=== PATIENT | male | born 1945 | race Caucasian/White ===

== ENCOUNTER 2017-12-26 15:47 | Emergency (ER) | payer MEDICARE ==
--- NOTE | 2017-12-26 16:22 | RAD ---
CHEST 1 VIEW Date: 12/26/17 HISTORY: Altered mental status. COMPARISON: Chest 1 view dated 06/25/17. FINDINGS: Lungs are hypoinflated with vascular crowding and spurious enlargement of the cardiac silhouette. No pneumothorax. No effusion. Left shoulder arthroplasty is present. No displaced rib fracture. IMPRESSION: Lung hypoinflation with vascular crowding. POS: [facility]
--- NOTE | 2017-12-26 16:41 | CT ---
CT HEAD NONCONTRAST DATE: 12/26/17 HISTORY: Altered mental status. COMPARISON: 06/25/17. FINDINGS: There is no evidence of acute intracranial hemorrhage or infarct. Mild chronic ischemic small vessel disease and diffuse cortical atrophy are apparent. There is no mass effect or shift of midline struct ures. Visualized paranasal sinuses remain well aerated. IMPRESSION: No acute intracranial abnormalities are demonstrated on noncontrast CT head. POS: [facility]
[2017-12-26 17:15] LABS: #Lymphocytes 0.5 thou/uL (1.20-3.40); #Monocytes 0.4 thou/uL (0.11-0.59); #Neutrophils 8.1 thou/uL (1.40-6.50); %Eosinophils 0.4 % (0.0-10.0); %Lymphocytes 5.2 % (21.0-51.0); %Monocytes 4.1 % (0.0-10.0); %Neutrophils 90.2 % (42.0-75.0); Hemoglobin 15.6 g/dL (14.0-18.0); Mean Corpuscular HGB CONC 32.7 g/dL (32.0-36.0); Mean Corpuscular Hemoglobin 27.7 pg (27.0-31.0); Mean Corpuscular Volume 84.6 fl (80.0-94.0); Mean Platelet Volume 8.4 fL (7.4-10.4); Platelet Count 127 thou/uL (130-400); RBC Distribution Width 15.9 % (11.5-14.5); Red Blood Cell (RBC) Count 5.62 mill/uL (4.70-6.10)
[2017-12-26 17:38] LABS: ALT (SGPT) 18 U/L (8-55); AST (SGOT) 20 U/L (5-34); Albumin 3.8 g/dL (3.4-4.8); Alkaline Phosphatase 67 U/L (40-150); Anion Gap 13 mmol/L (10-20); BUN (Urea Nitrogen) 20 mg/dL (8.4-25.7); Bilirubin, Total 0.6 mg/dL (0.2-1.2); CK (CPK) 64 U/L (30-200); Calc. Creatinine Clearance 0 mL/min (70-130); Calcium 8.8 mg/dL (7.8-10.44); Carbon Dioxide 23 mmol/L (23-31); Chloride 104 mmol/L (98-107); Estimated GFR-MDRD 59; Globulin 2.8 g/dL (2.4-3.5); Glucose 115 mg/dL (83-110); Protein, Total 6.6 g/dL (5.8-8.1); Sodium 136 mmol/L (136-145)
[2017-12-26 17:43] LABS: CKMB 0.8 ng/mL (0-6.6); Troponin I 0.011 ng/mL (< 0.028)
[2017-12-26 17:50] LABS: Bilirubin Negative (Negative); Blood, Urine Negative (Negative); Clarity CLEAR (Clear); Glucose, Urine (Dipstick) Negative (Negative); Leukocyte Negative (Negative); Nitrite Negative (Negative); Protein, Urine (Dipstick) Negative (Neg-Trace); Specific Gravity, Urine 1.021 (1.002-1.036); Urobilinogen 0.2 mg/dL (0.2-1.0)
--- NOTE | 2018-01-22 01:25 | EKG ---
Test Reason : Blood Pressure : / mmHG Vent. Rate : 088 BPM Atrial Rate : 214 BPM P-R Int : 000 ms QRS Dur : 118 ms QT Int : 396 ms P-R-T Axes : 000 -30 111 degrees QTc Int : 479 ms Atrial fibrillation Left axis deviation Low voltage QRS Septal infarct , age undetermined Inferior infarct , age undetermined Abnormal ECG Confirmed by RADHA WHITAKER, FEDE ([id number]), content editor SABIHA AQUINO ([id number]) on 01/22/2018 1:25:28 AM Referred By: Confirmed By:FEDE GARCIA MD
== END 2017-12-26 20:58 | disposition home or self-care (01) ==
LOC: ERS 15:47
DX: B34.9 Viral infection, unspecified (principal); I48.91 Unspecified atrial fibrillation; E11.9 Type 2 diabetes mellitus without complications; Z79.4 Long term (current) use of insulin; Z79.899 Other long term (current) drug therapy
CPT/HCPCS: 36415; 70450; 71045; 80053; 81003; 82550; 82553; 83605; 84484; 85025; 87040; 87086; 93005; 94760; 99214; G0463

== ENCOUNTER 2019-06-27 09:56 | Outpatient (CLI) | payer MEDICARE ==
[2019-06-27 11:01] LABS: Mean Corpuscular HGB CONC 32.4 g/dL (32.0-36.0); Mean Corpuscular Hemoglobin 28.2 pg (27.0-31.0); Mean Platelet Volume 8.4 fL (7.4-10.4); Platelet Count 163 thou/uL (130-400); RBC Distribution Width 13.5 % (11.5-14.5); Red Blood Cell (RBC) Count 5.31 mill/uL (4.70-6.10); White Blood Cell (WBC) Count 7.3 thou/uL (4.8-10.8)
[2019-06-27 11:21] LABS: INR-International Normal Ratio 1.3; PTT 59.5 SEC (22.9-36.1); Prothrombin Time 16.1 SEC (12.0-14.7)
[2019-06-27 11:23] LABS: Anion Gap 10 mmol/L (10-20); BUN (Urea Nitrogen) 22 mg/dL (8.4-25.7); Calc. Creatinine Clearance 0 mL/min (70-130); Calcium 9.3 mg/dL (7.8-10.44); Carbon Dioxide 30 mmol/L (23-31); Chloride 103 mmol/L (98-107); Estimated GFR-MDRD 52; Glucose 147 mg/dL (83-110); Potassium 4.1 mmol/L (3.5-5.1); Sodium 139 mmol/L (136-145)
[2019-06-27 12:20] LABS: Bacteria/HPF None Seen HPF (None Seen); Bilirubin Negative (Negative); Blood, Urine Negative (Negative); Clarity Clear (Clear); Glucose, Urine (Dipstick) Normal (Negative); Leukocyte Negative Leu/uL (Negative); Nitrite Negative (Negative); Protein, Urine (Dipstick) Negative (Neg-Trace); RBC/HPF 0-3 HPF (0-3); Squamous Epithelial None Seen HPF (0-3); Urobilinogen Normal mg/dL (Less than 2); WBC/HPF 0-3 HPF (0-3)
--- NOTE | 2019-06-27 18:22 | EKG ---
Test Reason : Blood Pressure : / mmHG Vent. Rate : 051 BPM Atrial Rate : 394 BPM P-R Int : 000 ms QRS Dur : 122 ms QT Int : 456 ms P-R-T Axes : 000 046 078 degrees QTc Int : 420 ms Atrial fibrillation with slow ventricular response Anteroseptal infarct (cited on or before 26-DEC-2017) Low voltage QRS Abnormal ECG When compared with ECG of 26-DEC-2017 16:06, Vent. rate has decreased BY 37 BPM Criteria for Inferior infarct are no longer Present Questionable change in initial forces of Anterior leads QT has shortened Confirmed by DR. Charlotte ONTIVEROS ([id number]) on 06/27/2019 6:22:09 PM Referred By: FRANNY Confirmed By:DR. Charlotte ONTIVEROS
== END 2019-06-27 09:57 | disposition home or self-care (01) ==
LOC: LABBT 09:56
PROVIDERS: ATTEND Urology
DX: Z01.818 Encounter for other preprocedural examination (principal); C61 Malignant neoplasm of prostate; N40.1 Benign prostatic hyperplasia with lower urinary tract symptoms; N39.0 Urinary tract infection, site not specified
CPT/HCPCS: 80048; 81001; 85027; 85610; 85730; 87077; 87086; 93005; 93010

== ENCOUNTER 2019-07-05 06:20 | Day surgery (SDC) | payer MEDICARE ==
[2019-06-27 10:10] VITALS: BMI 34.2
[2019-07-05] MEDS ORDERED: Levofloxacin 500 mg/D5W 100 ml Premix Bag ONE (06:45)
[2019-07-05] MEDS ORDERED: B & O ONE (10:56)
--- NOTE | 2019-07-05 12:24 | OP ---
DATE OF PROCEDURE: 07/05/2019 SERVICE: Urology. 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 POSTOPERATIVE DIAGNOSES: Benign prostatic hyperplasia with obstruction and prostate cancer. PROCEDURE PERFORMED: UroLift with six implants. INDICATIONS FOR PROCEDURE: Mr. Martines is a 73-year-old white male with low risk prostate cancer, Phillip 3 + 3 on active surveillance. He probably will transition to watchful waiting soon. He does have BPH with obstructive symptoms. We discussed options including the UroLift procedure with risks and benefits and he agreed to proceed forward. DESCRIPTION OF PROCEDURE: After identification of armband and verification of consent, the patient was brought back to the operating room, where he underwent total intravenous anesthesia. He was then placed in dorsal lithotomy position, prepped and draped in usual sterile fashion. After appropriate time-out, a lubricated 21-Danish rigid cystoscope sheath with camera was introduced into the urethra. The meatus did have to be dilated with [place] sounds in order to allow for introduction of the camera. The prostate was extremely hypertrophic and slightly vascular. The bladder was otherwise unremarkable as it was consistent with previous cystoscopy. The cystoscope was then switched out for the UroLift device and the first implant was placed on the patient's left side towards the bladder neck aspect. Compression of the prostate tissue was performed about 20 degrees on the anterior aspect of the prostate, taking good care to compress the lateral lobes sticking in. The safety was released and the blue trigger fired to release the needle. The lieberman trigger was fired to advance the Nitinol tab. The UroLift was then advanced forward until the white line to be seen in the keyhole and then, the release for the steel tab deployed on the prostatic lumen side. For some reason, there did not seem to be as good of a compression on this side, so we performed the same procedure on the contralateral aspect towards the bladder neck, which resulted in very good compression. Sutures were then placed at the prostatic apex near the verumontanum with excellent compression on both sides. An additional implant was placed on the left side closer to where the first implant was deployed on the left bladder neck side for better compression and again, the same thing happened with insufficient compression of the tissue. Six implants were was then also deployed near these other two implants, which resulted in very good compression at that time and much better opening of the prostatic channel. Upon completion, there was a nice anterior urethral channel with good passageway for urine to flow through. I did feel that this would allow the patient to urinate well. There was moderate amounts of bleeding, but nothing significant to require cauterization. The UroLift device was removed and an 18-Danish silastic catheter was advanced into the bladder with ease. A 10 mL of sterile water placed into the balloon. The patient was then taken out of positioning, awakened, and taken to Day Stay for recovery in stable condition. COMPLICATIONS: None. ESTIMATED BLOOD LOSS: Minimal. RETAINED TUBES AND DRAINS: An 18-Danish silicone catheter. IMPLANTS: Number of implants used 6. DISPOSITION: The patient will be monitored in the Day Stay. If his urine clears up, he can undergo a void trial and then be discharged home. If his urine remains bloody, we will keep the catheter and have him come back tomorrow for a potential void trial. Job ID: [id number]
== END 2019-07-05 14:46 | disposition home or self-care (01) ==
LOC: SDC 06:20
PROVIDERS: ATTEND Urology
PROC: 0T7D8DZ Dilation of Urethra with Intraluminal Device, Via Natural or Artificial Opening Endoscopic (ICD-10-PCS; principal; 2019-07-05)
DX: C61 Malignant neoplasm of prostate (principal); N40.1 Benign prostatic hyperplasia with lower urinary tract symptoms; N39.0 Urinary tract infection, site not specified; I10 Essential (primary) hypertension; E11.9 Type 2 diabetes mellitus without complications; E78.5 Hyperlipidemia, unspecified; E11.42 Type 2 diabetes mellitus with diabetic polyneuropathy; I48.91 Unspecified atrial fibrillation; E66.9 Obesity, unspecified; Z68.34 Body mass index [BMI] 34.0-34.9, adult; Z79.4 Long term (current) use of insulin; Z79.899 Other long term (current) drug therapy; Z88.8 Allergy status to other drugs, medicaments and biological substances; Z91.040 Latex allergy status
CPT/HCPCS: 82962; C1889; C9740; 36416; J1956

== ENCOUNTER 2019-11-27 12:34 | Outpatient (CLI) | payer MEDICARE ==
--- NOTE | 2019-11-27 13:48 | MRI ---
MRI BRAIN WITH AND WITHOUT IV CONTRAST: HISTORY: Mild cognitive impairment COMPARISON: 06/26/2017 CORRELATION:CT scan of 12/26/2017 FINDINGS: No restricted diffusion is seen. No evidence of infarct, hemorrhage, mass, midline shift or abnormal extra-axial fluid collections is noted. No abnormal postcontrast enhancement is seen. The ventricular size is appropriate and the basilar cisterns are patent. There is cortical atrophy. There are few foci of T2 prolongation in the periventricular white matter, consistent with minimal ch ronic small vessel ischemic disease. There is mucosal disease in the paranasal sinuses. There is fluid in the mastoid air cells. IMPRESSION: No evidence of acute intracranial process or mass.
[2019-11-27] MEDS ORDERED: Magnevist 469MG/ML 20 ML VIAL ONE (14:20)
== END 2019-11-27 12:35 | disposition home or self-care (01) ==
LOC: BICMRI 12:34
PROVIDERS: ATTEND Psychiatry & Neurology Neurology
DX: G31.84 Mild cognitive impairment of uncertain or unknown etiology (principal)
CPT/HCPCS: 70553; 82565; A9579

== ENCOUNTER 2020-01-10 11:10 | Emergency (ER) | payer MEDICARE ==
--- NOTE | 2020-01-10 11:48 | RAD ---
RIGHT SHOULDER 3 VIEWS: Date: 01/10/2020 HISTORY: Fall with trauma. FINDINGS: No evidence of fracture AC joint normally aligned. No evidence of dislocation. There are mild degener ative changes at the glenohumeral joint. IMPRESSION: No acute findings. POS: [facility]
--- NOTE | 2020-01-10 11:51 | RAD ---
Exam:3 views left shoulder HISTORY: Fall. Pain. Trauma. COMPARISON: None FINDINGS: Intercarpal and radiocarpal joint spaces are preserved. No fracture or cortical irregularit y or periosteal reaction. IMPRESSION: No posttraumatic change. There is pain or point tenderness, immobilization and follow-up imaging in 7-10 days.
--- NOTE | 2020-01-10 12:48 | CT ---
CT head noncontrast HISTORY: Fall. Head injury. COMPARISON: 12/26/2017. FINDINGS: There is no evidence of acute intracranial hemorrhage or infarct. Mild diffuse cortical atr ophy and chronic ischemic small vessel disease similar in appearance to the prior exam. There is no mass effect or shift of midline structures. Visualized paranasal sinuses remain well aera joshua. IMPRESSION : : No acute intracranial abnormalities are demonstrated.
== END 2020-01-10 13:20 | disposition home or self-care (01) ==
LOC: ERS 11:10
DX: S60.212A Contusion of left wrist, initial encounter (principal); S40.011A Contusion of right shoulder, initial encounter; S09.90XA Unspecified injury of head, initial encounter; E11.9 Type 2 diabetes mellitus without complications; I48.91 Unspecified atrial fibrillation; F43.10 Post-traumatic stress disorder, unspecified; Z79.84 Long term (current) use of oral hypoglycemic drugs; Z79.899 Other long term (current) drug therapy; W19.XXXA Unspecified fall, initial encounter
CPT/HCPCS: 70450

== ENCOUNTER 2020-04-17 07:58 | Emergency (ER) | payer MEDICARE, OTHER ==
[2020-04-17 08:33] LABS: #Basophils 0.1 thou/uL (0.0-0.2); #Eosinphils 0.3 thou/uL (0.0-0.7); #Lymphocytes 1.6 thou/uL (1.20-3.40); #Monocytes 0.7 thou/uL (0.11-0.59); #Neutrophils 4.5 thou/uL (1.40-6.50); %Basophils 0.8 % (0.0-1.0); %Eosinophils 3.6 % (0.0-10.0); %Lymphocytes 22.2 % (21.0-51.0); %Monocytes 9.7 % (0.0-10.0); %Neutrophils 63.7 % (42.0-75.0); Hemoglobin 14.2 g/dL (14.0-18.0); Mean Corpuscular HGB CONC 31.7 g/dL (32.0-36.0); Mean Corpuscular Hemoglobin 27.5 pg (27.0-31.0); Mean Corpuscular Volume 86.5 fL (78.0-98.0); Mean Platelet Volume 9.6 fL (7.4-10.4); Platelet Count 143 thou/uL (130-400); Red Blood Cell (RBC) Count 5.18 mill/uL (4.70-6.10)
[2020-04-17 08:56] LABS: ALT (SGPT) 20 U/L (8-55); AST (SGOT) 24 U/L (5-34); Albumin 3.9 g/dL (3.4-4.8); Alkaline Phosphatase 87 U/L (40-110); Anion Gap 12 mmol/L (10-20); BUN (Urea Nitrogen) 17 mg/dL (8.4-25.7); Bilirubin, Total 0.7 mg/dL (0.2-1.2); Calc. Creatinine Clearance 0 mL/min (70-130); Calcium 8.8 mg/dL (7.8-10.44); Carbon Dioxide 28 mmol/L (23-31); Chloride 104 mmol/L (98-107); Estimated GFR-MDRD 61; Globulin 2.6 g/dL (2.4-3.5); Glucose 180 mg/dL (83-110); Potassium 3.9 mmol/L (3.5-5.1); Protein, Total 6.5 g/dL (5.8-8.1); Sodium 140 mmol/L (136-145)
--- NOTE | 2020-04-17 08:57 | RAD ---
PORTABLE CHEST 1 VIEW: DATE: 04/17/2020. TIME: 8:45 AM. HISTORY: Shortness of breath. COMPARISON: 12/26/2017. FINDINGS: The heart size is normal. No focal areas of consolidation, pneumothoraces, trino pulmonary edema, or pleural effusions are seen. A left humeral prosthesis is present. IMPRESSION: No acute process. POS: [facility]
[2020-04-18 16:02] LABS: SARS-CoV-2 MS2 Positive; SARS-CoV-2 N Gene Negative; SARS-CoV-2 S Gene Negative; SARS-CoV-2 orf1ab Negative
== END 2020-04-17 10:18 | disposition home or self-care (01) ==
LOC: ERS 07:58
DX: R06.02 Shortness of breath (principal); E11.40 Type 2 diabetes mellitus with diabetic neuropathy, unspecified; I48.91 Unspecified atrial fibrillation; M10.9 Gout, unspecified; F43.10 Post-traumatic stress disorder, unspecified; Z20.828 Contact with and (suspected) exposure to other viral communicable diseases; Z79.899 Other long term (current) drug therapy; Z79.84 Long term (current) use of oral hypoglycemic drugs
CPT/HCPCS: 71045; 80053; 83880; 85025; 93005; 99285; U0003; 87635

== ENCOUNTER 2020-10-15 14:08 | Emergency (ER) | payer MEDICARE ==
[2020-10-15] MEDS ORDERED: Dexamethasone 4 mg/ml Vial ONE (14:40)
[2020-10-15 15:08] LABS: #Eosinphils 0.3 thou/uL (0.0-0.7); #Lymphocytes 0.6 thou/uL (1.20-3.40); #Monocytes 0.7 thou/uL (0.11-0.59); #Neutrophils 5.4 thou/uL (1.40-6.50); %Basophils 0.6 % (0.0-1.0); %Eosinophils 4.7 % (0.0-10.0); %Lymphocytes 8.1 % (21.0-51.0); %Monocytes 9.6 % (0.0-10.0); %Neutrophils 77.2 % (42.0-75.0); Hemoglobin 14.6 g/dL (14.0-18.0); Mean Corpuscular HGB CONC 32.4 g/dL (32.0-36.0); Mean Corpuscular Hemoglobin 28.9 pg (27.0-31.0); Mean Platelet Volume 8.9 fL (7.4-10.4); Platelet Count 143 thou/uL (130-400); RBC Distribution Width 13.6 % (11.5-14.5); Red Blood Cell (RBC) Count 5.08 mill/uL (4.70-6.10)
--- NOTE | 2020-10-15 15:12 | RAD ---
Portable frontal chest radiograph: 10/15/2020 COMPARISON: 04/17/2020 HISTORY: Dyspnea, Covid positive patient FINDINGS: Stable enlargement of the cardiac silhouette. Stable postoperative change of the left humer al head. No pneumothorax or pleural fluid. No focal consolidation or alveolar edema. Mild pulmonary vascular prominence. No significant interval change. IMPRESSION: Stable portable frontal chest radiograph.
[2020-10-15 15:33] LABS: ALT (SGPT) 24 U/L (8-55); AST (SGOT) 35 U/L (5-34); Albumin 4.3 g/dL (3.4-4.8); Alkaline Phosphatase 92 U/L (40-110); Anion Gap 15 mmol/L (10-20); BUN (Urea Nitrogen) 19 mg/dL (8.4-25.7); Bilirubin, Total 0.8 mg/dL (0.2-1.2); CK (CPK) 136 U/L (30-200); Calc. Creatinine Clearance 0 mL/min (70-130); Carbon Dioxide 31 mmol/L (23-31); Chloride 100 mmol/L (98-107); Globulin 3.1 g/dL (2.4-3.5); Glucose 144 mg/dL (83-110); Lipase 25 U/L (8-78); Potassium 3.7 mmol/L (3.5-5.1); Protein, Total 7.4 g/dL (5.8-8.1); Sodium 142 mmol/L (136-145)
[2020-10-15] MEDS ORDERED: diphenhydrAMINE 50 MG/ML VIAL IVP SCH (16:15)
[2020-10-15] MEDS ORDERED: Acetaminophen 500 MG TAB PO SCH (16:15)
[2020-10-15] MEDS ORDERED: Acetaminophen 500 MG TAB ONE (16:43)
[2020-10-15] MEDS ORDERED: diphenhydrAMINE 50 MG/ML VIAL ONE (16:43)
[2020-10-15] MEDS ORDERED: BAMLANIVIMAB 700 MG in Sodium Chloride 0.9% 250 ML 250 ML IVPB SCH (17:00)
--- NOTE | 2020-10-18 15:23 | EKG ---
Test Reason : Blood Pressure : / mmHG Vent. Rate : 072 BPM Atrial Rate : 072 BPM P-R Int : 000 ms QRS Dur : 120 ms QT Int : 450 ms P-R-T Axes : 000 -42 104 degrees QTc Int : 492 ms Atrial fibrillation with premature ventricular or aberrantly conducted complexes Left axis deviation Anteroseptal infarct , age undetermined T wave abnormality, consider lateral ischemia Abnormal ECG Confirmed by MICHAEL WHITAKER, ANJU ([id number]), video tape editor DANIAL ESCAMILLA ([id number]) on 10/18/2020 3:22:32 PM Referred By: Confirmed By:ANJU RODRIGUEZ MD
== END 2020-10-15 19:20 | disposition home or self-care (01) ==
LOC: ERS 14:08
DX: U07.1 COVID-19 (principal); E11.40 Type 2 diabetes mellitus with diabetic neuropathy, unspecified; I48.91 Unspecified atrial fibrillation; Z79.84 Long term (current) use of oral hypoglycemic drugs; Z79.899 Other long term (current) drug therapy; M10.9 Gout, unspecified
CPT/HCPCS: 71045; 80053; 82550; 83690; 83880; 84484; 85025; 85379; 93005; 96374; J1100; J1200; J7050

== ENCOUNTER 2022-06-22 09:31 | Outpatient (CLI) | payer MEDICARE ==
[2022-06-22 13:37] LABS: Anion Gap 15 mmol/L (10-20); BUN (Urea Nitrogen) 18 mg/dL (8.4-25.7); Calc. Creatinine Clearance 0 mL/min (70-130); Calcium 9.5 mg/dL (7.8-10.44); Carbon Dioxide 28 mmol/L (23-31); Chloride 103 mmol/L (98-107); Estimated GFR 65; Glucose 126 mg/dL (83-110); Potassium 4.1 mmol/L (3.5-5.1); Sodium 142 mmol/L (136-145)
[2022-06-22 13:38] LABS: Hemoglobin 16.1 g/dL (13.5-17.5); Mean Corpuscular HGB CONC 31.8 g/dL (32.0-36.0); Mean Corpuscular Hemoglobin 28.8 pg (27.0-33.0); Mean Corpuscular Volume 90.4 fl (81.2-95.1); Mean Platelet Volume 11.3 fl (7.4-10.4); Platelet Count 169 10x3/uL (150-450); RBC Distribution Width 15.6 % (11.5-14.5); White Blood Cell (WBC) Count 5.9 10x3/uL (3.5-10.5)
[2022-06-22 13:47] LABS: INR-International Normal Ratio 1.3; PTT 51.5 sec (22.0-33.0)
[2022-06-22 13:57] LABS: Bilirubin Neg (Negative); Blood, Urine Negative (Negative); Clarity Clear (Clear); Glucose, Urine (Dipstick) >=1000 mg/dL (Negative); Ketone, Urine Negative (Negative); Leukocyte Negative (Negative); Nitrite Negative (Negative); Protein, Urine (Dipstick) Negative (Neg-Trace); Urobilinogen Normal mg/dL (Less than 2)
[2022-06-22 14:29] LABS: Bacteria/HPF Rare-Few HPF (None Seen); RBC/HPF 0-3 HPF (0-3); Squamous Epithelial 0-3 HPF (0-3); WBC/HPF 0-3 HPF (0-3)
== END 2022-06-22 09:32 | disposition home or self-care (01) ==
LOC: LABBT 09:31
PROVIDERS: ATTEND Urology
DX: Z01.818 Encounter for other preprocedural examination (principal); N40.0 Benign prostatic hyperplasia without lower urinary tract symptoms; Z20.822 Contact with and (suspected) exposure to COVID-19
CPT/HCPCS: 80048; 81001; 85027; 85610; 85730; 87086; 87811; 93005; 93010

== ENCOUNTER 2022-06-25 08:03 | Day surgery (SDC) | payer MEDICARE ==
[2022-06-23 13:18] VITALS: BMI 30.8
[2022-06-25] MEDS ORDERED: Fentanyl 100 MCG/2 ML VIAL ONE (10:37)
[2022-06-25] MEDS ORDERED: PROPOFOL 200 MG/20 ML VIAL ONE (10:54)
[2022-06-25] MEDS ORDERED: ePHEDrine 50 MG/ML VIAL ONE (10:54)
[2022-06-25] MEDS ORDERED: Lidocaine 1% MPF 2 ML VIAL ONE (10:54)
[2022-06-25] MEDS ORDERED: B & O ONE (10:58)
[2022-06-25] MEDS ORDERED: Levofloxacin 500 mg/D5W 100 ml Premix Bag ONE (10:59)
[2022-06-25] MEDS ORDERED: Oxybutynin 5 MG TAB ONE (11:55)
[2022-06-25] MEDS ORDERED: Phenazopyridine HCl 100 MG TAB ONE (11:55)
== END 2022-06-25 14:40 | disposition home or self-care (01) ==
LOC: SDC 08:03
PROVIDERS: ATTEND Urology
PROC: 0T7D8DZ Dilation of Urethra with Intraluminal Device, Via Natural or Artificial Opening Endoscopic (ICD-10-PCS; principal; 2022-06-25)
DX: N40.1 Benign prostatic hyperplasia with lower urinary tract symptoms (principal); N13.8 Other obstructive and reflux uropathy; N39.41 Urge incontinence; I48.0 Paroxysmal atrial fibrillation; I12.9 Hypertensive chronic kidney disease with stage 1 through stage 4 chronic kidney disease, or unspecified chronic kidney disease; E11.22 Type 2 diabetes mellitus with diabetic chronic kidney disease; N18.9 Chronic kidney disease, unspecified; E11.40 Type 2 diabetes mellitus with diabetic neuropathy, unspecified; M10.9 Gout, unspecified; Z79.4 Long term (current) use of insulin; Z79.84 Long term (current) use of oral hypoglycemic drugs; Z79.890 Hormone replacement therapy; Z79.899 Other long term (current) drug therapy; Z88.8 Allergy status to other drugs, medicaments and biological substances; Z91.040 Latex allergy status
CPT/HCPCS: 82962; C9740; L8699; 36416; J1956; J2704; J3010; J3490

== ENCOUNTER 2022-09-24 12:29 | Inpatient (IN) | payer MEDICARE ==
[2022-09-24 13:13] LABS: #Basophils 0.1 thou/uL (0.0-0.2); #Eosinphils 0.3 thou/uL (0.0-0.7); #Lymphocytes 1.5 thou/uL (1.20-3.40); #Monocytes 0.6 thou/uL (0.11-0.59); #Neutrophils 4.1 thou/uL (1.40-6.50); %Basophils 1.4 % (0.0-1.0); %Lymphocytes 22.7 % (21.0-51.0); %Neutrophils 62.9 % (42.0-75.0); Hemoglobin 16.1 g/dL (14.0-18.0); Mean Corpuscular HGB CONC 32.3 g/dL (32.0-36.0); Mean Corpuscular Hemoglobin 29.2 pg (27.0-31.0); Mean Corpuscular Volume 90.3 fl (78.0-98.0); Mean Platelet Volume 9.4 fL (7.4-10.4); Platelet Count 148 10x3/uL (130-400); RBC Distribution Width 14.5 % (11.5-14.5); Red Blood Cell (RBC) Count 5.53 mill/uL (4.70-6.10); White Blood Cell (WBC) Count 6.5 10x3/uL (4.8-10.8)
[2022-09-24 13:37] LABS: ALT (SGPT) 20 U/L (8-55); AST (SGOT) 37 U/L (5-34); Albumin 4.4 g/dL (3.4-4.8); Alkaline Phosphatase 82 U/L (40-110); Anion Gap 13 mmol/L (10-20); BUN (Urea Nitrogen) 30 mg/dL (8.4-25.7); Bilirubin, Total 0.7 mg/dL (0.2-1.2); Calc. Creatinine Clearance 0 mL/min (70-130); Calcium 9.6 mg/dL (7.8-10.44); Carbon Dioxide 30 mmol/L (23-31); Chloride 101 mmol/L (98-107); Estimated GFR 30; Glucose 126 mg/dL (83-110); Potassium 4.6 mmol/L (3.5-5.1); Protein, Total 7.4 g/dL (5.8-8.1); Sodium 139 mmol/L (136-145)
[2022-09-24 14:09] LABS: Magnesium 2.2 mg/dL (1.6-2.6)
[2022-09-24] MEDS ORDERED: Dextrose 5% in Water 1,000 ML IV PRN (17:07)
[2022-09-24] MEDS ORDERED: Dextrose 50% Abboject 50 ML SYRINGE SLOW IVP PRN (17:07)
[2022-09-24] MEDS ORDERED: HumaLOG 300 UNITS/3 ML VIAL SC PRN (17:07)
[2022-09-24] MEDS ORDERED: HYDROcodone/Acetaminophen 5/325 mg Tablet PO PRN ×2 (17:28)
[2022-09-24] MEDS ORDERED: Bisacodyl 5 MG TAB PO PRN (17:28)
[2022-09-24] MEDS ORDERED: Acetaminophen 325 MG TAB PO PRN (17:28)
[2022-09-24] MEDS ORDERED: Ondansetron PF 4 MG/2 ML Vial IVP PRN (17:28)
[2022-09-24 18:06] VITALS: BMI 31.2
[2022-09-24 18:07] LABS: Troponin I 0.014 ng/mL (< 0.028)
[2022-09-24] MEDS: Sodium Chloride 0.9% 1,000 ML IV SCH (18:51)
[2022-09-24] MEDS: Atorvastatin Calcium 20 MG TAB PO SCH (20:07)
[2022-09-24] MEDS: Vit A,C & E/Lutein/Minerals Tablet PO SCH (20:08)
[2022-09-24 20:19] LABS: Bacteria/HPF None Seen HPF (None Seen); Bilirubin Negative (Negative); Blood, Urine Negative (Negative); CAUTI Indications for Culture Alt mental st,lethar; Clarity Clear (Clear); Glucose, Urine (Dipstick) Greater than 1000 mg/dL (Negative); Ketone, Urine Negative (Negative); Leukocyte Negative Leu/uL (Negative); Nitrite Negative (Negative); Protein, Urine (Dipstick) Negative (Neg-Trace); RBC/HPF 0-3 HPF (0-3); Specific Gravity, Urine 1.012 (1.002-1.036); Squamous Epithelial None Seen HPF (0-3); Urine Culture Reflex No No; Urobilinogen Normal mg/dL (Less than 2); WBC/HPF 0-3 HPF (0-3)
[2022-09-24 21:02] LABS: Troponin I 0.015 ng/mL (< 0.028)
[2022-09-25] MEDS: Sodium Chloride 0.9% 1,000 ML IV SCH ×3 (04:14→16:59)
[2022-09-25] MEDS: Levothyroxine Sodium 125 MCG TAB PO SCH (04:54)
[2022-09-25 05:13] LABS: #Basophils 0.1 thou/uL (0.0-0.2); #Eosinphils 0.4 thou/uL (0.0-0.7); #Lymphocytes 2.2 thou/uL (1.20-3.40); #Monocytes 0.6 thou/uL (0.11-0.59); %Basophils 1.2 % (0.0-1.0); %Eosinophils 6.4 % (0.0-10.0); %Lymphocytes 34.5 % (21.0-51.0); %Monocytes 10.1 % (0.0-10.0); %Neutrophils 47.7 % (42.0-75.0); Hemoglobin 14.4 g/dL (14.0-18.0); Mean Corpuscular HGB CONC 31.7 g/dL (32.0-36.0); Mean Corpuscular Hemoglobin 28.9 pg (27.0-31.0); Mean Corpuscular Volume 91.2 fl (78.0-98.0); Mean Platelet Volume 9.8 fL (7.4-10.4); Platelet Count 133 10x3/uL (130-400); RBC Distribution Width 14.7 % (11.5-14.5); Red Blood Cell (RBC) Count 4.99 mill/uL (4.70-6.10); White Blood Cell (WBC) Count 6.4 10x3/uL (4.8-10.8)
[2022-09-25 05:23] LABS: Anion Gap 12 mmol/L (10-20); BUN (Urea Nitrogen) 27 mg/dL (8.4-25.7); Calc. Creatinine Clearance 52 mL/min (70-130); Calcium 8.7 mg/dL (7.8-10.44); Carbon Dioxide 26 mmol/L (23-31); Chloride 105 mmol/L (98-107); Estimated GFR 42; Glucose 93 mg/dL (83-110); Magnesium 2.3 mg/dL (1.6-2.6); Sodium 139 mmol/L (136-145)
[2022-09-25] MEDS: Calcium Carbonate 500 MG TAB PO SCH (09:07)
[2022-09-25] MEDS: Allopurinol 300 MG TAB PO SCH (09:07)
[2022-09-25] MEDS: Vit A,C & E/Lutein/Minerals Tablet PO SCH ×2 (09:08→20:50)
[2022-09-25] MEDS: Oxybutynin ER 5 MG TAB PO SCH (09:08)
[2022-09-25] MEDS: Loratadine 10 MG TAB PO SCH (09:08)
[2022-09-25] MEDS: Cyanocobalamin (Vitamin B-12) 1,000 MCG TAB PO SCH (09:08)
[2022-09-25] MEDS: Floranex 1 GM Packet PO SCH (12:03)
[2022-09-25] MEDS ORDERED: HumaLOG 300 UNITS/3 ML VIAL SC PRN ×2 (14:23)
[2022-09-25] MEDS ORDERED: Gabapentin 400 MG CAP PO SCH (15:00)
[2022-09-25] MEDS: Gabapentin 300 MG CAP PO SCH ×2 (15:31→20:51)
[2022-09-25] MEDS ORDERED: Communication Order-Pharmacy FS ONE (19:57)
[2022-09-25 20:22] LABS: Hemoglobin 15.1 g/dL (14.0-18.0); Platelet Count 133 10x3/uL (130-400)
[2022-09-25] MEDS: Melatonin 3 MG TAB PO SCH (20:51)
[2022-09-25] MEDS: Atorvastatin Calcium 20 MG TAB PO SCH (20:51)
[2022-09-25] MEDS ORDERED: metFORMIN 850 MG TAB PO SCH (21:00)
[2022-09-26] MEDS: Sodium Chloride 0.9% 1,000 ML IV SCH ×2 (04:54→18:15)
[2022-09-26 05:27] LABS: Anion Gap 10 mmol/L (10-20); BUN (Urea Nitrogen) 25 mg/dL (8.4-25.7); Calc. Creatinine Clearance 60 mL/min (70-130); Calcium 9.1 mg/dL (7.8-10.44); Carbon Dioxide 25 mmol/L (23-31); Chloride 105 mmol/L (98-107); Estimated GFR 50; Glucose 101 mg/dL (83-110); Sodium 136 mmol/L (136-145)
[2022-09-26] MEDS: Levothyroxine Sodium 125 MCG TAB PO SCH (06:31)
[2022-09-26] MEDS ORDERED: Potassium Chloride 10 MEQ TAB PO SCH (09:00)
[2022-09-26] MEDS ORDERED: Enoxaparin Sodium 100 MG/ML SYRINGE SC SCH (09:00)
[2022-09-26] MEDS: Calcium Carbonate 500 MG TAB PO SCH (09:15)
[2022-09-26] MEDS: Allopurinol 300 MG TAB PO SCH (09:15)
[2022-09-26] MEDS: Empagliflozin 25 MG TAB PO SCH (09:16)
[2022-09-26] MEDS: Cyanocobalamin (Vitamin B-12) 1,000 MCG TAB PO SCH (09:16)
[2022-09-26] MEDS: Gabapentin 300 MG CAP PO SCH ×3 (09:16→20:42)
[2022-09-26] MEDS: Oxybutynin ER 5 MG TAB PO SCH (09:17)
[2022-09-26] MEDS: Vit A,C & E/Lutein/Minerals Tablet PO SCH ×2 (09:17→20:41)
[2022-09-26] MEDS: Loratadine 10 MG TAB PO SCH (09:17)
[2022-09-26] MEDS: Floranex 1 GM Packet PO SCH (16:41)
[2022-09-26] MEDS: Atorvastatin Calcium 20 MG TAB PO SCH (20:42)
[2022-09-26] MEDS: Melatonin 3 MG TAB PO SCH (20:42)
[2022-09-27 05:42] LABS: Anion Gap 12 mmol/L (10-20); BUN (Urea Nitrogen) 26 mg/dL (8.4-25.7); Calc. Creatinine Clearance 66 mL/min (70-130); Calcium 8.9 mg/dL (7.8-10.44); Carbon Dioxide 22 mmol/L (23-31); Chloride 108 mmol/L (98-107); Estimated GFR 56; Glucose 107 mg/dL (83-110); Sodium 138 mmol/L (136-145)
[2022-09-27] MEDS: Levothyroxine Sodium 125 MCG TAB PO SCH (05:45)
[2022-09-27] MEDS: Sodium Chloride 0.9% 1,000 ML IV SCH (09:18)
[2022-09-27] MEDS: Floranex 1 GM Packet PO SCH (09:19)
[2022-09-27] MEDS: Calcium Carbonate 500 MG TAB PO SCH (09:19)
[2022-09-27] MEDS: Empagliflozin 25 MG TAB PO SCH (09:19)
[2022-09-27] MEDS: Cyanocobalamin (Vitamin B-12) 1,000 MCG TAB PO SCH (09:19)
[2022-09-27] MEDS: Vit A,C & E/Lutein/Minerals Tablet PO SCH ×2 (09:20→20:43)
[2022-09-27] MEDS: Oxybutynin ER 5 MG TAB PO SCH (09:22)
[2022-09-27] MEDS: Gabapentin 300 MG CAP PO SCH ×3 (09:22→20:41)
[2022-09-27] MEDS: Loratadine 10 MG TAB PO SCH (09:22)
[2022-09-27] MEDS ORDERED: Lidocaine 1% (PF) 30 ML VIAL ONE ×2 (11:53→14:44)
[2022-09-27] MEDS ORDERED: Iopamidol 370 76% 50 ML VIAL FS ONE (13:16)
[2022-09-27] MEDS ORDERED: FENTANYL 50 MCG/ML 1 ML VIAL ONE (14:24)
[2022-09-27] MEDS ORDERED: Midazolam HCl 2 mg/2 ml Vial ONE (14:24)
[2022-09-27] MEDS ORDERED: Gentamicin 80 MG/2 ML VIAL ONE (14:28)
[2022-09-27] MEDS ORDERED: CEFAZOLIN 1 GM VIAL ONE ×2 (14:28→14:44)
[2022-09-27] MEDS ORDERED: CEFAZOLIN 2 GM VIAL ONE ×2 (14:28→14:54)
[2022-09-27] MEDS ORDERED: FLU VACC QS2022-23(65YR UP)/PF 240 MCG/0.7 ML SYRINGE IM ONE (18:15)
[2022-09-27] MEDS: Atorvastatin Calcium 20 MG TAB PO SCH (20:41)
[2022-09-27] MEDS: Cephalexin 250 MG CAP PO SCH (20:41)
[2022-09-27] MEDS: Melatonin 3 MG TAB PO SCH (20:42)
[2022-09-28] MEDS: Levothyroxine Sodium 125 MCG TAB PO SCH (06:33)
[2022-09-28 08:20] VITALS: BP 151/65; TEMP 97.6
[2022-09-28] MEDS: Vit A,C & E/Lutein/Minerals Tablet PO SCH (08:36)
[2022-09-28] MEDS: Oxybutynin ER 5 MG TAB PO SCH (08:37)
[2022-09-28] MEDS: Cyanocobalamin (Vitamin B-12) 1,000 MCG TAB PO SCH (08:37)
[2022-09-28] MEDS: Cephalexin 250 MG CAP PO SCH (08:37)
[2022-09-28] MEDS: Loratadine 10 MG TAB PO SCH (08:37)
[2022-09-28] MEDS: Calcium Carbonate 500 MG TAB PO SCH (08:37)
[2022-09-28] MEDS: Gabapentin 300 MG CAP PO SCH (08:38)
[2022-09-28] MEDS: Empagliflozin 25 MG TAB PO SCH (08:38)
[2022-09-28] MEDS: Floranex 1 GM Packet PO SCH (08:45)
[2022-09-28] MEDS ORDERED: Furosemide 20 MG TAB PO SCH (09:00)
[2022-09-29] MEDS ORDERED: Potassium Chloride 10 MEQ TAB PO SCH (08:00)
[2022-09-30] MEDS ORDERED: Dabigatran 150 mg Capsule PO SCH (09:00)
== END 2022-09-28 10:43 | disposition home or self-care (01) | DRG 243 ==
LOC: ERS 12:29 → 2SW 17:11 → OBSVTOIN 09-25 08:09
PROVIDERS: ADMIT Internal Medicine; ATTEND Internal Medicine
PROC: 0JH604Z Insertion of Pacemaker, Single Chamber into Chest Subcutaneous Tissue and Fascia, Open Approach (ICD-10-PCS; principal; 2022-09-27)
PROC: 02HK3JZ Insertion of Pacemaker Lead into Right Ventricle, Percutaneous Approach (ICD-10-PCS; 2022-09-27)
PROC: B5171ZZ Fluoroscopy of Left Subclavian Vein using Low Osmolar Contrast (ICD-10-PCS; 2022-09-27)
DX: R00.1 Bradycardia, unspecified (principal); N17.9 Acute kidney failure, unspecified; I44.7 Left bundle-branch block, unspecified; I48.19 Other persistent atrial fibrillation; E86.0 Dehydration; I25.10 Atherosclerotic heart disease of native coronary artery without angina pectoris; E11.40 Type 2 diabetes mellitus with diabetic neuropathy, unspecified; E11.22 Type 2 diabetes mellitus with diabetic chronic kidney disease; F03.90 Unspecified dementia, unspecified severity, without behavioral disturbance, psychotic disturbance, mood disturbance, and anxiety; M06.9 Rheumatoid arthritis, unspecified; E66.9 Obesity, unspecified; N18.2 Chronic kidney disease, stage 2 (mild); E03.9 Hypothyroidism, unspecified; I12.9 Hypertensive chronic kidney disease with stage 1 through stage 4 chronic kidney disease, or unspecified chronic kidney disease; E78.00 Pure hypercholesterolemia, unspecified; Z90.89 Acquired absence of other organs; Z88.8 Allergy status to other drugs, medicaments and biological substances; Z91.040 Latex allergy status; Z98.890 Other specified postprocedural states; Z79.899 Other long term (current) drug therapy; Z79.84 Long term (current) use of oral hypoglycemic drugs; Z98.84 Bariatric surgery status; Z80.0 Family history of malignant neoplasm of digestive organs; Z80.42 Family history of malignant neoplasm of prostate; Z68.31 Body mass index [BMI] 31.0-31.9, adult; M10.9 Gout, unspecified; Z79.4 Long term (current) use of insulin; R55 Syncope and collapse; Z20.822 Contact with and (suspected) exposure to COVID-19
CPT/HCPCS: 33207; 36415; 36416; 70450; 71045; 75820; 80048; 80053; 81001; 83735; 83880; 84443; 84484; 85025; 93005; 93306; 96360; 96361; 99152; 99153; G0378; J0690; J1580; J1650; J1815; J2001; J2250; J3010; J7050; Q9967; U0003; U0005

== ENCOUNTER 2023-02-21 12:00 | Inpatient (IN) | payer MEDICARE ==
[2023-02-21 12:37] VITALS: BMI 29.9
[2023-02-21 13:07] LABS: Mean Corpuscular HGB CONC 31.6 g/dL (32.0-36.0); Mean Corpuscular Hemoglobin 27.9 pg (27.0-33.0); Mean Corpuscular Volume 88.5 fl (81.2-95.1); Platelet Count 171 10x3/uL (150-450); RBC Distribution Width 14.9 % (11.5-14.5); Red Blood Cell (RBC) Count 5.73 10x6/uL (4.32-5.72); White Blood Cell (WBC) Count 7.3 10x3/uL (3.5-10.5)
[2023-02-21 13:08] LABS: Bilirubin Neg (Negative); Blood, Urine Negative (Negative); Clarity Clear (Clear); Glucose, Urine (Dipstick) >=1000 mg/dL (Negative); Ketone, Urine Negative (Negative); Leukocyte Negative (Negative); Nitrite Negative (Negative); Protein, Urine (Dipstick) Negative (Neg-Trace); Specific Gravity, Urine 1.005 (1.005-1.030); Urobilinogen Normal mg/dL (Less than 2)
[2023-02-21 13:14] LABS: INR-International Normal Ratio 1.2; Prothrombin Time 12.7 sec (9.5-12.1)
[2023-02-21 13:21] LABS: ALT (SGPT) 15 U/L (8-55); AST (SGOT) 28 U/L (5-34); Albumin 4.1 g/dL (3.4-4.8); Alkaline Phosphatase 86 U/L (40-110); Anion Gap 13 mmol/L (10-20); BUN (Urea Nitrogen) 17 mg/dL (8.4-25.7); Bilirubin, Total 0.7 mg/dL (0.2-1.2); Calc. Creatinine Clearance 65 mL/min (70-130); Carbon Dioxide 28 mmol/L (23-31); Chloride 105 mmol/L (98-107); Estimated GFR 57; Globulin 2.5 g/dL (2.4-3.5); Glucose 123 mg/dL (83-110); Potassium 4.3 mmol/L (3.5-5.1); Protein, Total 6.6 g/dL (5.8-8.1); Sodium 142 mmol/L (136-145)
[2023-02-23] MEDS ORDERED: fentaNYL 50 mcg/mL 1 mL Vial ONE (06:54)
[2023-02-23] MEDS ORDERED: Norepinephrine 4 MG/4 ML VIAL ONE (06:55)
[2023-02-23] MEDS ORDERED: SUGAMMADEX SODIUM 200 MG/2 ML VIAL ONE (06:55)
[2023-02-23] MEDS ORDERED: CEFAZOLIN 1 GM VIAL ONE (06:58)
[2023-02-23] MEDS ORDERED: Protamine Sulfate 50 MG/5 ML VIAL ONE (06:58)
[2023-02-23] MEDS ORDERED: Heparin 10,000 UNITS/ 10 ML VIAL ONE (06:58)
[2023-02-23] MEDS ORDERED: Rocuronium Bromide 10 MG/ML (10ML VIAL) ONE (07:50)
[2023-02-23] MEDS ORDERED: Ondansetron PF 4 MG/2 ML Vial ONE (07:50)
[2023-02-23] MEDS ORDERED: Dexamethasone 20 MG/5 ML VIAL ONE (07:50)
[2023-02-23] MEDS ORDERED: PHENYLEPHRINE-NS 100 MCG/ML 10 ML SYRINGE ONE (07:50)
[2023-02-23] MEDS ORDERED: PROPOFOL 200 MG/20 ML VIAL ONE (07:50)
[2023-02-23] MEDS ORDERED: Lidocaine 1% PF 5 ML VIAL ONE (07:50)
[2023-02-23] MEDS ORDERED: Iopamidol 370 76% 100 ML VIAL ONE (10:03)
[2023-02-23] MEDS ORDERED: Acetaminophen/Codeine 30-300mg Tablet PO PRN ×2 (10:45)
[2023-02-23] MEDS ORDERED: fentaNYL PF 100 MCG/2 ML SYRINGE ONE (10:57)
== END 2023-02-23 14:38 | disposition home or self-care (01) | DRG 274 ==
LOC: SURG A 02-23 06:12
PROVIDERS: ADMIT Internal Medicine Cardiovascular Disease; ATTEND Internal Medicine Cardiovascular Disease
PROC: 02L73DK Occlusion of Left Atrial Appendage with Intraluminal Device, Percutaneous Approach (ICD-10-PCS; principal; 2023-02-23)
PROC: B24BZZ4 Ultrasonography of Heart with Aorta, Transesophageal (ICD-10-PCS; 2023-02-23)
DX: I48.11 Longstanding persistent atrial fibrillation (principal); Z00.6 Encounter for examination for normal comparison and control in clinical research program; I10 Essential (primary) hypertension; E11.9 Type 2 diabetes mellitus without complications; G47.33 Obstructive sleep apnea (adult) (pediatric); E66.9 Obesity, unspecified; H54.8 Legal blindness, as defined in USA; Z95.0 Presence of cardiac pacemaker; Z91.040 Latex allergy status; Z88.8 Allergy status to other drugs, medicaments and biological substances; Z79.4 Long term (current) use of insulin; Z79.84 Long term (current) use of oral hypoglycemic drugs; Z79.890 Hormone replacement therapy; Z68.30 Body mass index [BMI] 30.0-30.9, adult; Z79.01 Long term (current) use of anticoagulants
CPT/HCPCS: 33340; 36416; 80053; 81003; 85027; 85610; 85730; 86850; 86900; 86901; 93005; 93010; 93306; 93312; C1759; C1760; C1894; J0690; J1100; J1644; J2405; J2704; J2720; J3010

== ENCOUNTER 2023-08-31 05:52 | Day surgery (SDC) | payer MEDICARE ==
[2023-08-26 12:03] VITALS: BMI 30.4
[2023-08-26 12:43] LABS: Hemoglobin 16.3 g/dL (13.5-17.5); Mean Corpuscular Hemoglobin 28.6 pg (27.0-33.0); Mean Corpuscular Volume 89.5 fl (81.2-95.1); Mean Platelet Volume 11.2 fl (7.4-10.4); Platelet Count 160 10x3/uL (150-450); RBC Distribution Width 16.5 % (11.5-14.5)
[2023-08-26 12:59] LABS: INR-International Normal Ratio 1.1; Prothrombin Time 11.8 sec (9.5-12.1)
[2023-08-26 13:00] LABS: Anion Gap 18 mmol/L (10-20); BUN (Urea Nitrogen) 21 mg/dL (8.4-25.7); Calc. Creatinine Clearance 62 mL/min (70-130); Calcium 9.6 mg/dL (7.8-10.44); Carbon Dioxide 25 mmol/L (23-31); Chloride 104 mmol/L (98-107); Estimated GFR 54; Glucose 115 mg/dL (83-110); Potassium 4.5 mmol/L (3.5-5.1); Sodium 142 mmol/L (136-145)
[2023-08-31] MEDS ORDERED: Lidocaine 1% PF 5 ML VIAL ONE (07:25)
[2023-08-31] MEDS ORDERED: PROPOFOL 40 ML ONE (07:25)
[2023-08-31] MEDS ORDERED: PHENYLEPHRINE-NS 100 MCG/ML 10 ML SYRINGE ONE (08:06)
== END 2023-08-31 09:17 | disposition home or self-care (01) ==
LOC: SDC 05:52
PROVIDERS: ATTEND Internal Medicine Cardiovascular Disease
PROC: B245ZZ4 Ultrasonography of Left Heart, Transesophageal (ICD-10-PCS; principal; 2023-08-31)
DX: I48.11 Longstanding persistent atrial fibrillation (principal); Z91.040 Latex allergy status; Z88.8 Allergy status to other drugs, medicaments and biological substances
CPT/HCPCS: 36416; 80048; 85027; 85610; 85730; 93312; J2704

== ENCOUNTER 2023-11-07 06:56 | Emergency (ER) | payer MEDICARE ==
[2023-11-07] MEDS ORDERED: Oxymetazoline HCl 0.05% (30 ML BOT) ONE (07:20)
[2023-11-07 07:33] LABS: #Basophils 0.1 thou/uL (0.0-0.2); #Eosinphils 0.3 thou/uL (0.0-0.7); #Monocytes 0.5 thou/uL (0.11-0.59); #Neutrophils 3.8 thou/uL (1.40-6.50); %Basophils 1.6 % (0.0-1.0); %Eosinophils 5.2 % (0.0-10.0); %Lymphocytes 22.1 % (21.0-51.0); %Monocytes 8.7 % (0.0-10.0); %Neutrophils 61.6 % (42.0-75.0); Hemoglobin 15.3 g/dL (14.0-18.0); Mean Corpuscular HGB CONC 31.9 g/dL (32.0-36.0); Mean Corpuscular Hemoglobin 29.3 pg (27.0-31.0); Mean Platelet Volume 10.9 fL (7.4-10.4); Platelet Count 161 10x3/uL (130-400); Red Blood Cell (RBC) Count 5.22 mill/uL (4.70-6.10); White Blood Cell (WBC) Count 6.2 10x3/uL (4.8-10.8)
[2023-11-07 07:54] LABS: ALT (SGPT) 21 U/L (8-55); AST (SGOT) 26 U/L (5-34); Alkaline Phosphatase 81 U/L (40-110); Anion Gap 13 mmol/L (10-20); BUN (Urea Nitrogen) 23 mg/dL (8.4-25.7); Bilirubin, Total 0.7 mg/dL (0.2-1.2); Calc. Creatinine Clearance 0 mL/min (70-130); Carbon Dioxide 26 mmol/L (23-31); Chloride 106 mmol/L (98-107); Estimated GFR 57; Globulin 2.7 g/dL (2.4-3.5); Glucose 163 mg/dL (83-110); Potassium 4.2 mmol/L (3.5-5.1); Protein, Total 6.7 g/dL (5.8-8.1); Sodium 141 mmol/L (136-145)
[2023-11-07 07:55] LABS: INR-International Normal Ratio 1.1; PTT 35.7 sec (22.9-36.1); Prothrombin Time 14.3 sec (12.0-14.7)
== END 2023-11-07 09:06 | disposition home or self-care (01) ==
LOC: ERS 06:56
DX: R04.0 Epistaxis (principal); E11.40 Type 2 diabetes mellitus with diabetic neuropathy, unspecified; I48.91 Unspecified atrial fibrillation; Z79.4 Long term (current) use of insulin; Z79.82 Long term (current) use of aspirin; Z79.84 Long term (current) use of oral hypoglycemic drugs
CPT/HCPCS: 36415; 80053; 85025; 85610; 85730; 99283

== ENCOUNTER → 2023-11-18 | Day surgery (SDC) | payer MEDICARE ==
[2023-11-16 16:11] VITALS: BMI 30.1
[2023-11-16 16:50] LABS: Hematocrit 38.2 % (38.8-50.0); Hemoglobin 12.2 g/dL (13.5-17.5); Mean Corpuscular HGB CONC 31.9 g/dL (32.0-36.0); Mean Corpuscular Hemoglobin 29.4 pg (27.0-33.0); Mean Platelet Volume 11.2 fl (7.4-10.4); Platelet Count 206 10x3/uL (150-450); RBC Distribution Width 16.4 % (11.5-14.5); Red Blood Cell (RBC) Count 4.15 10x6/uL (4.32-5.72); White Blood Cell (WBC) Count 7.6 10x3/uL (3.5-10.5)
[2023-11-16 17:05] LABS: PTT 29.9 sec (22.0-33.0); Prothrombin Time 10.9 sec (9.5-12.1)
[2023-11-16 17:06] LABS: Anion Gap 12 mmol/L (10-20); BUN (Urea Nitrogen) 19 mg/dL (8.4-25.7); Calc. Creatinine Clearance 60 mL/min (70-130); Calcium 8.9 mg/dL (7.8-10.44); Carbon Dioxide 30 mmol/L (23-31); Chloride 105 mmol/L (98-107); Estimated GFR 53; Glucose 107 mg/dL (83-110); Potassium 4.2 mmol/L (3.5-5.1); Sodium 143 mmol/L (136-145)
[~2023-11-18] MED LIST: Lidocaine 1% PF 5 ML VIAL ONE; PROPOFOL 20 ML ONE
== END ==
LOC: SDC 07:47
PROVIDERS: ATTEND Internal Medicine Cardiovascular Disease
PROC: B24BZZ4 Ultrasonography of Heart with Aorta, Transesophageal (ICD-10-PCS; principal; 2023-11-18)
DX: I48.91 Unspecified atrial fibrillation (principal); Z79.01 Long term (current) use of anticoagulants; Z79.82 Long term (current) use of aspirin; Z91.040 Latex allergy status
CPT/HCPCS: 36416; 80048; 85027; 85610; 85730; 93005; 93010; 93312; J2704

== ENCOUNTER 2024-04-30 12:30 | Inpatient (IN) | payer MEDICARE ==
[2024-05-02] MEDS ORDERED: Bupivacaine 0.25% HCL 30 ML VIAL ONE (06:46)
[2024-05-02] MEDS ORDERED: fentaNYL 50 mcg/mL 1 mL Vial ONE (06:46)
[2024-05-02] MEDS ORDERED: Lidocaine 1% PF 5 ML VIAL ONE (06:52)
[2024-05-02] MEDS ORDERED: PROPOFOL 20 ML ONE (06:52)
[2024-05-02] MEDS ORDERED: fentaNYL PF 100 MCG/2 ML SYRINGE ONE (06:52)
[2024-05-02] MEDS ORDERED: Rocuronium Bromide 10 MG/ML (10ML VIAL) ONE (06:52)
[2024-05-02] MEDS ORDERED: Bupivacaine/Epinephrine 0.25% 30 ML VIAL ONE (07:11)
[2024-05-02] MEDS ORDERED: cefOXitin 2 GM VIAL ONE (07:23)
[2024-05-02] MEDS ORDERED: Sodium Chloride 0.9% 100 ML ONE ×2 (07:23→07:58)
[2024-05-02] MEDS ORDERED: ePHEDrine Sulfate 50 MG/10 ML VIAL ONE (07:52)
[2024-05-02] MEDS ORDERED: Phenylephrine 10 MG/ML VIAL ONE (07:58)
[2024-05-02] MEDS ORDERED: Phenylephrine 40 MG/NS 250 ML 250 ML ONE (07:58)
[2024-05-02] MEDS ORDERED: Ondansetron PF 4 MG/2 ML Vial ONE (09:38)
[2024-05-02] MEDS ORDERED: SUGAMMADEX SODIUM 200 MG/2 ML VIAL ONE (09:38)
[2024-05-02] MEDS ORDERED: Ondansetron HCl/PF 4 MG/2 ML Vial IVP PRN (10:11)
[2024-05-02] MEDS ORDERED: Promethazine HCl 25 MG/ML VIAL IM PRN ×2 (10:11→10:27)
[2024-05-02] MEDS ORDERED: Dextrose 50% Abboject 50 ML SYRINGE SLOW IVP PRN ×2 (10:27)
[2024-05-02] MEDS ORDERED: Ipratropium/Albuterol 3 ML NEB NEB PRN (10:27)
[2024-05-02] MEDS ORDERED: Dextrose 5% in Water 1,000 ML IV PRN (10:27)
[2024-05-02] MEDS ORDERED: Glucagon 1 MG/ML KIT IM PRN ×2 (10:27)
[2024-05-02] MEDS ORDERED: hydrALAZINE 20 MG/ML VIAL ONE (11:03)
[2024-05-02 13:24] VITALS: BMI 29.7
[2024-05-02] MEDS: Sodium Chloride 0.9% 1,000 ML IV SCH (14:00)
[2024-05-02] MEDS: Acetaminophen 500 MG TAB PO SCH (14:23)
[2024-05-02] MEDS: hydrALAZINE 20 MG/ML VIAL SLOW IVP PRN (14:59)
[2024-05-02] MEDS: cefOXitin 2 GM in Sodium Chloride 0.9% 100 ML IVPB SCH (15:00)
[2024-05-02] MEDS: Morphine 4 MG/ML VIAL SLOW IVP PRN (15:57)
[2024-05-02] MEDS: Ondansetron PF 4 MG/2 ML Vial IVP PRN (16:13)
[2024-05-02] MEDS: Insulin Lispro 100 UNIT/ML 10 ML VIAL SC PRN (18:04)
[2024-05-02] MEDS: Loratadine 10 MG TAB PO SCH (20:51)
[2024-05-02] MEDS: Levothyroxine Sodium 125 MCG TAB PO SCH (20:51)
[2024-05-02] MEDS: Gabapentin 300 MG CAP PO SCH (20:51)
[2024-05-02] MEDS: Atorvastatin Calcium 40 MG TAB PO SCH (20:52)
[2024-05-02] MEDS: Famotidine 20 MG TAB PO SCH (20:52)
[2024-05-02] MEDS: Famotidine/PF 20 mg/2ml Vial SLOW IVP SCH (22:47)
[2024-05-03 07:19] LABS: #Basophils 0.04 10x3/uL (0.0-0.2); %Basophils 0.4 % (0.0-1.0); %Eosinophils 0.3 % (0.0-10.0); %Lymphocytes 9.2 % (21.0-51.0); %Monocytes 10.4 % (0.0-10.0); %Neutrophils 79.3 % (42.0-75.0); Hematocrit 47.5 % (42.0-52.0); Hemoglobin 14.8 g/dL (14.0-18.0); Mean Corpuscular HGB CONC 31.2 g/dL (32.0-36.0); Mean Corpuscular Hemoglobin 27.6 pg (27.0-31.0); Mean Corpuscular Volume 88.6 fL (78.0-98.0); Mean Platelet Volume 11.3 fL (7.4-10.4); Platelet Count 131 10x3/uL (130-400); RBC Distribution Width 19.6 % (11.5-14.5); Red Blood Cell (RBC) Count 5.36 mill/uL (4.70-6.10)
[2024-05-03 07:20] LABS: Anion Gap 13 mmol/L (10-20); BUN (Urea Nitrogen) 17 mg/dL (8.4-25.7); Calc. Creatinine Clearance 63 mL/min (70-130); Calcium 8.6 mg/dL (7.8-10.44); Carbon Dioxide 21 mmol/L (23-31); Chloride 109 mmol/L (98-107); Estimated GFR 57; Glucose 131 mg/dL (83-110); Potassium 4.1 mmol/L (3.5-5.1); Sodium 139 mmol/L (136-145)
[2024-05-03] MEDS: Enoxaparin 40 MG (0.4 mL) SYRINGE SC SCH (10:34)
[2024-05-03] MEDS: Furosemide 20 MG TAB PO SCH (10:35)
[2024-05-03] MEDS: Oxybutynin ER 5 MG TAB PO SCH (10:36)
[2024-05-04 07:03] LABS: Bacteria/HPF None Seen HPF (None Seen); Bilirubin Negative (Negative); Blood, Urine Trace (Negative); CAUTI Indications for Culture Dysuria,urgency,freq; Clarity Clear (Clear); Glucose, Urine (Dipstick) Greater than 1000 mg/dL (Negative); Ketone, Urine Trace mg/dL (Negative); Leukocyte Negative Leu/uL (Negative); Nitrite Negative (Negative); Protein, Urine (Dipstick) 50 mg/dL (Neg-Trace); Specific Gravity, Urine 1.025 (1.002-1.036); Squamous Epithelial 0-3 HPF (0-3); Urobilinogen Normal mg/dL (Less than 2); WBC/HPF None Seen HPF (0-3); pH, Urine 5.5 (5.0-9.0)
[2024-05-04 07:08] LABS: Urine Culture Reflex No No
[2024-05-04] MEDS ORDERED: traMADol HCl 50 MG TAB PO PRN ×2 (11:16→12:20)
[2024-05-05 09:04] VITALS: BP 136/81; TEMP 98.5
== END 2024-05-05 10:20 | disposition home or self-care (01) | DRG 331 ==
LOC: SURG A 05-02 05:58 → SJJU 05-02 13:08
PROVIDERS: ADMIT Surgery; ATTEND Surgery
PROC: 0DBE4ZZ Excision of Large Intestine, Percutaneous Endoscopic Approach (ICD-10-PCS; principal; 2024-05-02)
PROC: 8E0W4CZ Robotic Assisted Procedure of Trunk Region, Percutaneous Endoscopic Approach (ICD-10-PCS; 2024-05-02)
DX: K63.89 Other specified diseases of intestine (principal); I48.0 Paroxysmal atrial fibrillation; E11.40 Type 2 diabetes mellitus with diabetic neuropathy, unspecified; Z95.0 Presence of cardiac pacemaker; N18.31 Chronic kidney disease, stage 3a; E11.22 Type 2 diabetes mellitus with diabetic chronic kidney disease; Z79.899 Other long term (current) drug therapy; I10 Essential (primary) hypertension; Z98.49 Cataract extraction status, unspecified eye; Z98.890 Other specified postprocedural states; Z01.818 Encounter for other preprocedural examination
CPT/HCPCS: 36415; 36416; 80048; 81001; 83036; 85025; 88309; 93005; 93010; A4333; J0360; J0665; J0694; J1650; J1815; J2270; J2371; J2405; J2704; J3010; J3490; J7050; S0028

== ENCOUNTER 2025-05-22 10:27 | Outpatient (CLI) | payer MEDICARE | END 2025-05-22 10:28 | disposition home or self-care (01) | LOC: RAD 10:27 | PROVIDERS: ATTEND Specialist | DX: M54.16 Radiculopathy, lumbar region (principal); Z95.0 Presence of cardiac pacemaker | CPT/HCPCS: 71046 ==

== ENCOUNTER 2025-05-24 08:22 | Outpatient (CLI) | payer MEDICARE | END 2025-05-24 08:23 | disposition home or self-care (01) | LOC: MRI 08:22 | PROVIDERS: ATTEND Specialist | DX: M51.16 Intervertebral disc disorders with radiculopathy, lumbar region (principal); M47.26 Other spondylosis with radiculopathy, lumbar region; M48.061 Spinal stenosis, lumbar region without neurogenic claudication; M47.25 Other spondylosis with radiculopathy, thoracolumbar region; M48.05 Spinal stenosis, thoracolumbar region; M47.27 Other spondylosis with radiculopathy, lumbosacral region; M48.07 Spinal stenosis, lumbosacral region; M25.78 Osteophyte, vertebrae; M89.9 Disorder of bone, unspecified; R60.0 Localized edema | CPT/HCPCS: 72148; 76014 ==

== ENCOUNTER 2025-06-21 11:21 | Outpatient (CLI) | payer MEDICARE | END 2025-06-21 11:22 | disposition home or self-care (01) | LOC: RAD 11:21 | PROVIDERS: ATTEND Family Medicine | DX: M54.16 Radiculopathy, lumbar region (principal) | CPT/HCPCS: 71046 ==

== ENCOUNTER 2025-07-16 13:50 | Outpatient (CLI) | payer MEDICARE | END 2025-07-16 13:51 | disposition home or self-care (01) | LOC: CT 13:50 | PROVIDERS: ATTEND Specialist | DX: S32.000A Wedge compression fracture of unspecified lumbar vertebra, initial encounter for closed fracture (principal); M53.3 Sacrococcygeal disorders, not elsewhere classified; M48.061 Spinal stenosis, lumbar region without neurogenic claudication; M48.07 Spinal stenosis, lumbosacral region; M47.816 Spondylosis without myelopathy or radiculopathy, lumbar region; M47.817 Spondylosis without myelopathy or radiculopathy, lumbosacral region; M89.9 Disorder of bone, unspecified | CPT/HCPCS: 72131; 72195; 76014 ==

== ENCOUNTER 2025-08-21 09:14 | Inpatient (IN) | payer MEDICARE ==
[2025-08-21 10:24] LABS: Actual Bicarbonate (HCO3v) 20.4 mEq/L (22-28); Analyzer IN Cardio ER; Base Excess -2.9 mEq/L (-2.0 to +3.0); Calcium, Ionized (venous) 1.15 mmol/L (1.16-1.32); Chloride (VBG) 103 mmol/L (98-106); Hematocrit-VBG 30 % (42.0-52.0); Hemoglobin (Hb) 10.2 g/dL (12.6-17.4); Potassium (VBG) 4.15 mmol/L (3.70-5.30); Sodium 136 mmol/L (133-146)
[2025-08-21 10:57] LABS: Hematocrit 28.8 % (42.0-52.0); Hemoglobin 9.3 g/dL (14.0-18.0); Mean Corpuscular Hemoglobin 30.7 pg (27.0-31.0); Mean Corpuscular Volume 95.0 fL (78.0-98.0); Platelet Count 105 10x3/uL (130-400); Red Blood Cell (RBC) Count 3.03 mill/uL (4.70-6.10); White Blood Cell (WBC) Count 25.94 10x3/uL (4.8-10.8)
[2025-08-21 10:59] LABS: ALT (SGPT) 17 U/L (Less than 45); AST (SGOT) 34 U/L (11-34); Albumin 3.1 g/dL (3.1-4.5); Alkaline Phosphatase 64 U/L (40-110); Anion Gap 17 mmol/L (10-20); BUN (Urea Nitrogen) 38 mg/dL (8.4-25.7); Bilirubin, Total 0.6 mg/dL (0.3-1.2); Calc. Creatinine Clearance 0 mL/min (70-130); Calcium 9.2 mg/dL (7.8-10.44); Carbon Dioxide 21 mmol/L (23-31); Chloride 105 mmol/L (98-107); Globulin 3.9 g/dL (2.4-3.5); Glucose 145 mg/dL (83-110); Potassium 4.2 mmol/L (3.5-5.1); Sodium 139 mmol/L (136-145)
[2025-08-21 11:34] LABS: Anisocytosis SLIGHT = 6-15 cells HPF (0-5); Macrocytosis SLIGHT = 6-15 cells HPF (0-5); Other Cell Types 15.1; Platelet Adequacy Comment Platelets Decreased; Polychromasia SLIGHT = 2-3 cells HPF (0-2); Smudge Cells 8.5 %
[2025-08-21 12:42] LABS: CAUTI Indications for Culture Alt mental st,lethar; Glucose, Urine (Dipstick) Normal (Negative); Leukocyte 250 Leu/uL (Negative); Protein, Urine (Dipstick) 100 mg/dL (Neg-Trace); Specific Gravity, Urine 1.013 (1.002-1.036); WBC/HPF 21-50 HPF (0-3)
[2025-08-21 12:43] LABS: Bacteria/HPF 1+ HPF (None Seen)
[2025-08-21 12:44] LABS: Urine Culture Reflex Yes Yes
[2025-08-21] MEDS ORDERED: cefTRIAXone (ROCEPHIN) 1 GM VIAL ONE (13:16)
[2025-08-21] MEDS ORDERED: VANCOMYCIN 2 GRAM/400 ML BAG ONE (14:48)
[2025-08-21 16:18] VITALS: BMI 29.2
[2025-08-21] MEDS ORDERED: Vancomycin Dose by Levels Sliding Scale (Wt 71-99) FS SCH (16:30)
[2025-08-21] MEDS: Acetaminophen 325 MG TAB PO PRN (16:40)
[2025-08-21] MEDS: cefTRIAXone\\ROCEPHIN 1 GM in Sodium Chloride 0.9% 100 ML IVPB SCH (16:40)
[2025-08-21 16:57] LABS: Actual Bicarbonate (HCO3v) 20.4 mEq/L (22-28); Base Excess -5.2 mEq/L (-2.0 to +3.0); Calcium, Ionized (venous) 1.15 mmol/L (1.16-1.32); Chloride (VBG) 103 mmol/L (98-106); Hematocrit-VBG 32 % (42.0-52.0); Hemoglobin (Hb) 10.9 g/dL (12.6-17.4); Potassium (VBG) 4.23 mmol/L (3.70-5.30); Sodium 138 mmol/L (133-146)
[2025-08-21 17:08] LABS: Hematocrit 31.2 % (42.0-52.0); Hemoglobin 9.7 g/dL (14.0-18.0); Mean Corpuscular Hemoglobin 30.7 pg (27.0-31.0); Mean Corpuscular Volume 98.7 fL (78.0-98.0); Platelet Count 105 10x3/uL (130-400); Red Blood Cell (RBC) Count 3.16 mill/uL (4.70-6.10); White Blood Cell (WBC) Count 27.72 10x3/uL (4.8-10.8)
[2025-08-21] MEDS: Furosemide 40 MG (4 mL) VIAL SLOW IVP SCH ×2 (17:14→22:57)
[2025-08-21] MEDS: Albumin 25% 25 GM (100 mL) BOT IVPB SCH (17:21)
[2025-08-21 17:26] LABS: Anisocytosis MODERATE=16-30 cells HPF (0-5); Burr Cells SLIGHT = 2-5 cells HPF (0-1); Macrocytosis SLIGHT = 6-15 cells HPF (0-5); Ovalocytes SLIGHT = 2-5 cells HPF (0-1); Platelet Adequacy Comment Platelets Decreased; Polychromasia SLIGHT = 2-3 cells HPF (0-2); Smudge Cells 11.9 %
[2025-08-21 17:31] LABS: ALT (SGPT) 16 U/L (Less than 45); AST (SGOT) 33 U/L (11-34); Albumin 3.1 g/dL (3.1-4.5); Alkaline Phosphatase 67 U/L (40-110); Anion Gap 17 mmol/L (10-20); BUN (Urea Nitrogen) 37 mg/dL (8.4-25.7); Bilirubin, Total 0.6 mg/dL (0.3-1.2); Calc. Creatinine Clearance 27 mL/min (70-130); Calcium 9.2 mg/dL (7.8-10.44); Carbon Dioxide 24 mmol/L (23-31); Chloride 103 mmol/L (98-107); Globulin 4.1 g/dL (2.4-3.5); Glucose 150 mg/dL (83-110); Magnesium 2.2 mg/dL (1.6-2.6); Potassium 4.3 mmol/L (3.5-5.1); Sodium 140 mmol/L (136-145)
[2025-08-21 20:22] LABS: Sodium, Urine 89.0 mmol/L (Not Available)
[2025-08-21] MEDS: Aspirin 81 mg Enteric Coated Tablet PO SCH (20:42)
[2025-08-21] MEDS: Melatonin 3 MG TAB PO PRN (20:42)
[2025-08-21] MEDS ORDERED: Vancomycin 1 GM in Premix 1 BAG IVPB SCH (21:00)
[2025-08-22] MEDS: Metoprolol Tartrate 5 MG (5 mL) VIAL IVP SCH (00:09)
[2025-08-22] MEDS: Metoprolol Succinate XL 25 MG ER.TAB PO SCH ×2 (01:35→08:37)
[2025-08-22 05:14] LABS: Hematocrit 27.2 % (42.0-52.0); Hemoglobin 8.6 g/dL (14.0-18.0); Mean Corpuscular Hemoglobin 30.9 pg (27.0-31.0); Mean Corpuscular Volume 97.8 fL (78.0-98.0); Platelet Count 105 10x3/uL (130-400); Red Blood Cell (RBC) Count 2.78 mill/uL (4.70-6.10); White Blood Cell (WBC) Count 44.01 10x3/uL (4.8-10.8)
[2025-08-22 05:25] LABS: Anion Gap 18 mmol/L (10-20); BUN (Urea Nitrogen) 37 mg/dL (8.4-25.7); Calc. Creatinine Clearance 26 mL/min (70-130); Calcium 9.1 mg/dL (7.8-10.44); Carbon Dioxide 22 mmol/L (23-31); Chloride 103 mmol/L (98-107); Glucose 224 mg/dL (83-110); Potassium 3.9 mmol/L (3.5-5.1); Sodium 139 mmol/L (136-145)
[2025-08-22 05:48] LABS: Platelet Adequacy Comment Platelets Decreased; Polychromasia SLIGHT = 2-3 cells HPF (0-2); Smudge Cells 24.3 %
[2025-08-22 10:25] LABS: ALT (SGPT) 14 U/L (Less than 45); AST (SGOT) 26 U/L (11-34); Albumin 3.8 g/dL (3.1-4.5); Alkaline Phosphatase 56 U/L (40-110); Bilirubin, Direct 0.5 mg/dL (0.1-0.3); Bilirubin, Total 0.8 mg/dL (0.3-1.2)
[2025-08-22] MEDS ORDERED: Dextrose 50% Abboject 50 ML SYRINGE SLOW IVP PRN (12:15)
[2025-08-22] MEDS ORDERED: Glucagon 1 MG/ML KIT IM PRN (12:15)
[2025-08-22] MEDS: cefTRIAXone\\ROCEPHIN 1 GM in Sodium Chloride 0.9% 100 ML IVPB SCH (13:39)
[2025-08-22 15:08] LABS: Reference Lab Name LABCORP
[2025-08-22] MEDS: Ferrous Sulfate 325 MG TAB PO SCH (17:07)
[2025-08-22] MEDS: Gabapentin 300 MG CAP PO SCH (21:28)
[2025-08-22] MEDS: Mirtazapine 15 MG TAB PO SCH (23:50)
[2025-08-23 06:08] LABS: #Basophils 0.05 10x3/uL (0.0-0.2); #Eosinophils 0.14 10x3/uL (0.0-0.7); #Monocytes 31.16 10x3/uL (0.11-0.59); #Neutrophils 3.26 10x3/uL (1.40-6.50); %Basophils 0.1 % (0.0-1.0); %Eosinophils 0.3 % (0.0-10.0); %Lymphocytes 8.0 % (21.0-51.0); %Monocytes 75.0 % (0.0-10.0); %Neutrophils 8.0 % (42.0-75.0); Hematocrit 26.2 % (42.0-52.0); Hemoglobin 8.2 g/dL (14.0-18.0); Mean Corpuscular Hemoglobin 30.5 pg (27.0-31.0); Mean Corpuscular Volume 97.4 fL (78.0-98.0); Platelet Count 95 10x3/uL (130-400); Red Blood Cell (RBC) Count 2.69 mill/uL (4.70-6.10); White Blood Cell (WBC) Count 41.54 10x3/uL (4.8-10.8)
[2025-08-23 06:10] LABS: Anion Gap 15 mmol/L (10-20); BUN (Urea Nitrogen) 44 mg/dL (8.4-25.7); Calc. Creatinine Clearance 25 mL/min (70-130); Calcium 9.2 mg/dL (7.8-10.44); Carbon Dioxide 24 mmol/L (23-31); Chloride 105 mmol/L (98-107); Glucose 214 mg/dL (83-110); Potassium 4.1 mmol/L (3.5-5.1); Sodium 140 mmol/L (136-145)
[2025-08-23] MEDS: Mirabegron ER 25 MG ER.TAB PO SCH (09:07)
[2025-08-23] MEDS: Cyanocobalamin (Vitamin B-12) 1,000 MCG TAB PO SCH (09:07)
[2025-08-23] MEDS: Allopurinol 100 MG TAB PO SCH (09:07)
[2025-08-23] MEDS: Sodium Ferric Gluconate 250 MG in Sodium Chloride 0.9% 250 ML 250 ML IVPB SCH (10:20)
[2025-08-23] MEDS: EPOETIN ALFA-EPBX (ESRD) 10,000 UNITS/ML VIAL SC SCH (12:46)
[2025-08-23] MEDS: Mirtazapine 15 MG TAB PO SCH (20:52)
[2025-08-24 05:15] LABS: Hematocrit 25.7 % (42.0-52.0); Hemoglobin 7.9 g/dL (14.0-18.0); Mean Corpuscular Hemoglobin 30.2 pg (27.0-31.0); Mean Corpuscular Volume 98.1 fL (78.0-98.0); Platelet Count 90 10x3/uL (130-400); Red Blood Cell (RBC) Count 2.62 mill/uL (4.70-6.10); White Blood Cell (WBC) Count 24.31 10x3/uL (4.8-10.8)
[2025-08-24 05:17] LABS: Anion Gap 19 mmol/L (10-20); BUN (Urea Nitrogen) 50 mg/dL (8.4-25.7); Calc. Creatinine Clearance 26 mL/min (70-130); Calcium 9.0 mg/dL (7.8-10.44); Carbon Dioxide 20 mmol/L (23-31); Chloride 105 mmol/L (98-107); Glucose 191 mg/dL (83-110); Potassium 4.0 mmol/L (3.5-5.1); Sodium 140 mmol/L (136-145)
[2025-08-24 05:43] LABS: Anisocytosis SLIGHT = 6-15 cells HPF (0-5); Nucleated RBC (Manual Ct) 2 % (0); Platelet Adequacy Comment Platelets Decreased; Poikilocytosis SLIGHT = 6-15 cells HPF (0-5); Polychromasia SLIGHT = 2-3 cells HPF (0-2)
[2025-08-25 06:41] LABS: Albumin 2.9 g/dL (3.1-4.5); Anion Gap 16 mmol/L (10-20); BUN (Urea Nitrogen) 45 mg/dL (8.4-25.7); BUN/Creatinine Ratio 17.44; Calc. Creatinine Clearance 30 mL/min (70-130); Calcium 8.9 mg/dL (7.8-10.44); Carbon Dioxide 25 mmol/L (23-31); Chloride 106 mmol/L (98-107); Glucose 147 mg/dL (83-110); Potassium 3.8 mmol/L (3.5-5.1); Sodium 143 mmol/L (136-145)
[2025-08-25 06:52] LABS: Hematocrit 26.2 % (42.0-52.0); Hemoglobin 8.3 g/dL (14.0-18.0); Mean Corpuscular Hemoglobin 30.6 pg (27.0-31.0); Mean Corpuscular Volume 96.7 fL (78.0-98.0); Platelet Count 96 10x3/uL (130-400); Red Blood Cell (RBC) Count 2.71 mill/uL (4.70-6.10); White Blood Cell (WBC) Count 13.41 10x3/uL (4.8-10.8)
[2025-08-25 07:59] LABS: Anisocytosis SLIGHT = 6-15 cells HPF (0-5); Burr Cells SLIGHT = 2-5 cells HPF (0-1); Microcytosis SLIGHT = 6-15 cells HPF (0-5); Platelet Adequacy Comment Platelets Decreased; Polychromasia SLIGHT = 2-3 cells HPF (0-2); Schistocytes SLIGHT = 2-5 cells HPF (0-1); Smudge Cells 25.2 %
[2025-08-25] MEDS: Albumin 25% 25 GM (100 mL) BOT IVPB SCH (14:05)
[2025-08-25] MEDS: Furosemide 20 MG (2 mL) VIAL SLOW IVP SCH (18:30)
[2025-08-26 06:11] LABS: Hematocrit 25.7 % (42.0-52.0); Hemoglobin 8.2 g/dL (14.0-18.0); Mean Corpuscular Hemoglobin 31.2 pg (27.0-31.0); Mean Corpuscular Volume 97.7 fL (78.0-98.0); Platelet Count 88 10x3/uL (130-400); Red Blood Cell (RBC) Count 2.63 mill/uL (4.70-6.10); White Blood Cell (WBC) Count 15.98 10x3/uL (4.8-10.8)
[2025-08-26 06:19] LABS: Albumin 3.4 g/dL (3.1-4.5); Anion Gap 19 mmol/L (10-20); BUN (Urea Nitrogen) 38 mg/dL (8.4-25.7); BUN/Creatinine Ratio 15.83; Calc. Creatinine Clearance 32 mL/min (70-130); Calcium 8.9 mg/dL (7.8-10.44); Carbon Dioxide 28 mmol/L (23-31); Chloride 105 mmol/L (98-107); Glucose 121 mg/dL (83-110); Potassium 3.6 mmol/L (3.5-5.1); Sodium 148 mmol/L (136-145)
[2025-08-26 06:36] LABS: Nucleated RBC (Manual Ct) 2 % (0); Platelet Adequacy Comment Platelets Decreased; Polychromasia SLIGHT = 2-3 cells HPF (0-2)
[2025-08-27 05:31] LABS: Hematocrit 25.7 % (42.0-52.0); Hemoglobin 7.9 g/dL (14.0-18.0); Mean Corpuscular Hemoglobin 30.7 pg (27.0-31.0); Mean Corpuscular Volume 100.0 fL (78.0-98.0); Platelet Count 81 10x3/uL (130-400); Red Blood Cell (RBC) Count 2.57 mill/uL (4.70-6.10); White Blood Cell (WBC) Count 19.81 10x3/uL (4.8-10.8)
[2025-08-27 05:37] LABS: Albumin 3.1 g/dL (3.1-4.5); Anion Gap 16 mmol/L (10-20); BUN (Urea Nitrogen) 37 mg/dL (8.4-25.7); BUN/Creatinine Ratio 14.68; Calc. Creatinine Clearance 31 mL/min (70-130); Calcium 9.4 mg/dL (7.8-10.44); Carbon Dioxide 30 mmol/L (23-31); Chloride 101 mmol/L (98-107); Glucose 180 mg/dL (83-110); Potassium 3.5 mmol/L (3.5-5.1); Sodium 143 mmol/L (136-145)
[2025-08-27 06:01] LABS: Macrocytosis SLIGHT = 6-15 cells HPF (0-5); Nucleated RBC (Manual Ct) 1 % (0); Other Cell Types 5.8; Platelet Adequacy Comment Platelets Decreased; Smudge Cells 21.2 %
[2025-08-27] MEDS: Albumin 25% 25 GM (100 mL) BOT IVPB SCH (06:17)
[2025-08-27] MEDS: Melatonin 3 MG TAB PO SCH (19:43)
[2025-08-27] MEDS: QUEtiapine 25 MG TAB PO SCH (19:43)
[2025-08-27] MEDS: Haloperidol 5 MG TAB PO SCH (20:10)
[2025-08-28 04:38] LABS: Actual Bicarbonate (HCO3v) 32.2 mEq/L (22-28); Base Excess 5.7 mEq/L (-2.0 to +3.0); Calcium, Ionized (venous) 1.23 mmol/L (1.16-1.32); Chloride (VBG) 101 mmol/L (98-106); Hematocrit-VBG 29 % (42.0-52.0); Hemoglobin (Hb) 9.7 g/dL (12.6-17.4); Potassium (VBG) 3.77 mmol/L (3.70-5.30); Sodium 146 mmol/L (133-146)
[2025-08-28] MEDS: Furosemide 20 MG (2 mL) VIAL SLOW IVP SCH (04:39)
[2025-08-28 05:03] LABS: Albumin 4.3 g/dL (3.1-4.5); Anion Gap 16 mmol/L (10-20); BUN (Urea Nitrogen) 29 mg/dL (8.4-25.7); BUN/Creatinine Ratio 12.08; CRP, High Sensitivity at Bryan 5.66 mg/dL (< or = 0.5); Calc. Creatinine Clearance 32 mL/min (70-130); Calcium 10.1 mg/dL (7.8-10.44); Carbon Dioxide 27 mmol/L (23-31); Chloride 103 mmol/L (98-107); Glucose 187 mg/dL (83-110); Potassium 3.6 mmol/L (3.5-5.1); Sodium 142 mmol/L (136-145)
[2025-08-28 05:06] LABS: Hematocrit 27.6 % (42.0-52.0); Hemoglobin 8.6 g/dL (14.0-18.0); Mean Corpuscular Hemoglobin 31.3 pg (27.0-31.0); Mean Corpuscular Volume 100.4 fL (78.0-98.0); Platelet Count 101 10x3/uL (130-400); Red Blood Cell (RBC) Count 2.75 mill/uL (4.70-6.10); White Blood Cell (WBC) Count 15.90 10x3/uL (4.8-10.8)
[2025-08-28 05:31] LABS: Actual Bicarbonate (HCO3a) 29.0 mEq/L (22-28); Base Excess (BEa) 4.5 mEq/L (-2.0 to +3.0); CO2 Tension 43.0 mmHg (35.0-45.0); Calcium, Ionized (arterial) 1.23 mmol/L (1.12-1.30); Hematocrit-ABG 25 % (42.0-52.0); Hemoglobin (Hb) 8.5 g/dL (14.0-18.0); O2 Tension (PaO2), arterial 60.4 mmHg (> 60.0); Potassium - ABG Lab 3.46 mmol/L (3.70-5.30); pH, Arterial 7.447 (7.35-7.45)
[2025-08-28 05:36] LABS: Anisocytosis SLIGHT = 6-15 cells HPF (0-5); Macrocytosis SLIGHT = 6-15 cells HPF (0-5); Platelet Adequacy Comment Platelets Decreased; Polychromasia SLIGHT = 2-3 cells HPF (0-2)
[2025-08-28 11:34] LABS: Bacteria/HPF 1+ HPF (None Seen); CAUTI Indications for Culture Fever or rigors; Glucose, Urine (Dipstick) Normal (Negative); Leukocyte 75 Leu/uL (Negative); Protein, Urine (Dipstick) 200 mg/dL (Neg-Trace); RBC/HPF 21-50 HPF (0-3); Specific Gravity, Urine 1.020 (1.002-1.036); WBC/HPF Greater than 50 HPF (0-3); Yeast-Budding 1+ HPF (None Seen)
[2025-08-28 11:38] LABS: Urine Culture Reflex Yes Yes
[2025-08-28 11:49] LABS: Syphilis Antibody Index 0.13 S/CO (<1.00 Non-Reactive)
[2025-08-28 14:46] VITALS: BMI 29.7
[2025-08-28] MEDS: Fluconazole In NaCl,Iso-Osm 200 MG in Premix 1 BAG IVPB SCH (15:05)
[2025-08-28 16:14] LABS: Routine O & P Final report (.)
[2025-08-28] MEDS: NACL ISO OSM IVPB STA (17:17)
[2025-08-28] MEDS: FLUCONAZOLE IVPB STA (17:17)
[2025-08-28] MEDS ORDERED: QUEtiapine 25 MG TAB PO SCH (18:00)
[2025-08-28] MEDS: QUEtiapine 25 MG TAB PO SCH (18:19)
[2025-08-28] MEDS: diphenhydrAMINE 50 MG/ML VIAL IVP PRN (21:11)
[2025-08-28] MEDS: Melatonin 3 MG TAB PO SCH (23:56)
[2025-08-29 06:25] LABS: Hematocrit 23.7 % (42.0-52.0); Hemoglobin 7.2 g/dL (14.0-18.0); Mean Corpuscular Hemoglobin 30.0 pg (27.0-31.0); Mean Corpuscular Volume 98.8 fL (78.0-98.0); Platelet Count 114 10x3/uL (130-400); Red Blood Cell (RBC) Count 2.40 mill/uL (4.70-6.10); White Blood Cell (WBC) Count 44.75 10x3/uL (4.8-10.8)
[2025-08-29 06:38] LABS: ALT (SGPT) 15 U/L (Less than 45); AST (SGOT) 29 U/L (11-34); Albumin 3.6 g/dL (3.1-4.5); Alkaline Phosphatase 43 U/L (40-110); Anion Gap 17 mmol/L (10-20); BUN (Urea Nitrogen) 35 mg/dL (8.4-25.7); BUN/Creatinine Ratio 13.46; Bilirubin, Total 0.9 mg/dL (0.3-1.2); Calc. Creatinine Clearance 30 mL/min (70-130); Calcium 10.1 mg/dL (7.8-10.44); Carbon Dioxide 26 mmol/L (23-31); Chloride 103 mmol/L (98-107); Globulin 3.1 g/dL (2.4-3.5); Glucose 241 mg/dL (83-110); Magnesium 1.8 mg/dL (1.6-2.6); Potassium 3.6 mmol/L (3.5-5.1); Sodium 142 mmol/L (136-145)
[2025-08-29 07:43] LABS: Anisocytosis SLIGHT = 6-15 cells HPF (0-5); Platelet Adequacy Comment Platelets Decreased; Poikilocytosis SLIGHT = 6-15 cells HPF (0-5); Polychromasia SLIGHT = 2-3 cells HPF (0-2); Schistocytes SLIGHT = 2-5 cells HPF (0-1); Smudge Cells 8.5 %
[2025-08-29] MEDS ORDERED: Metoprolol Tartrate 5 MG (5 mL) VIAL IVP PRN (08:00)
[2025-08-29] MEDS: Fluconazole 100 MG TAB PO SCH (08:59)
[2025-08-29 09:42] LABS: #Basophils 0.04 10x3/uL (0.0-0.2); #Eosinophils 0.22 10x3/uL (0.0-0.7); #Monocytes 31.79 10x3/uL (0.11-0.59); #Neutrophils 2.69 10x3/uL (1.40-6.50); %Basophils 0.1 % (0.0-1.0); %Eosinophils 0.5 % (0.0-10.0); %Lymphocytes 8.6 % (21.0-51.0); %Monocytes 78.9 % (0.0-10.0); %Neutrophils 6.7 % (42.0-75.0); Hematocrit 23.2 % (42.0-52.0); Hemoglobin 7.2 g/dL (14.0-18.0); Mean Corpuscular Hemoglobin 31.0 pg (27.0-31.0); Mean Corpuscular Volume 100.0 fL (78.0-98.0); Platelet Count 114 10x3/uL (130-400); Red Blood Cell (RBC) Count 2.32 mill/uL (4.70-6.10); White Blood Cell (WBC) Count 40.29 10x3/uL (4.8-10.8)
[2025-08-29 10:09] LABS: Anisocytosis SLIGHT = 6-15 cells HPF (0-5); Other Cell Types 0.9; Platelet Adequacy Comment Platelets Decreased; Poikilocytosis SLIGHT = 6-15 cells HPF (0-5); Polychromasia SLIGHT = 2-3 cells HPF (0-2)
[2025-08-29] MEDS: Haloperidol 1 MG TAB PO SCH ×2 (14:17→17:44)
[2025-08-29] MEDS ORDERED: GASTROGRAFIN 30 ML BOT ONE (14:51)
[2025-08-29] MEDS: Melatonin 3 MG TAB PO SCH (21:06)
[2025-08-30 06:05] LABS: Hematocrit 23.3 % (42.0-52.0); Hemoglobin 7.1 g/dL (14.0-18.0); Mean Corpuscular Hemoglobin 31.0 pg (27.0-31.0); Mean Corpuscular Volume 101.7 fL (78.0-98.0); Platelet Count 116 10x3/uL (130-400); Red Blood Cell (RBC) Count 2.29 mill/uL (4.70-6.10); White Blood Cell (WBC) Count 46.22 10x3/uL (4.8-10.8)
[2025-08-30 06:18] LABS: Albumin 3.5 g/dL (3.1-4.5); Anion Gap 18 mmol/L (10-20); BUN (Urea Nitrogen) 42 mg/dL (8.4-25.7); BUN/Creatinine Ratio 13.55; Calc. Creatinine Clearance 25 mL/min (70-130); Calcium 10.4 mg/dL (7.8-10.44); Carbon Dioxide 26 mmol/L (23-31); Chloride 105 mmol/L (98-107); Glucose 250 mg/dL (83-110); Potassium 3.8 mmol/L (3.5-5.1); Sodium 145 mmol/L (136-145)
[2025-08-30 06:36] LABS: Anisocytosis MODERATE=16-30 cells HPF (0-5); Macrocytosis SLIGHT = 6-15 cells HPF (0-5); Nucleated RBC (Manual Ct) 1 % (0); Ovalocytes SLIGHT = 2-5 cells HPF (0-1); Platelet Adequacy Comment Platelets Decreased; Polychromasia SLIGHT = 2-3 cells HPF (0-2); Smudge Cells 19.3 %
[2025-08-30] MEDS: Senokot S 8.6-50 MG TAB PO SCH (08:58)
[2025-08-30 12:21] LABS: Sodium, Urine 56.0 mmol/L (Not Available)
[2025-08-30] MEDS ORDERED: Pharmacy to Dose : VANC IVPB PRN (15:25)
[2025-08-30] MEDS ORDERED: Vancomycin Dose by Levels Sliding Scale (Wt 71-99) FS SCH (16:00)
[2025-08-30] MEDS: VANCOMYCIN 2 GRAM/400 ML Premix BAG IVPB SCH (16:01)
[2025-08-30] MEDS: Mineral Oil ENEMA PR SCH (17:38)
[2025-08-30 19:14] LABS: CMV DNA-PCR Test Negative (Negative)
[2025-08-30] MEDS: diphenhydrAMINE 50 MG/ML VIAL IVP SCH (20:09)
[2025-08-31 08:19] LABS: Albumin 3.3 g/dL (3.1-4.5); Anion Gap 18 mmol/L (10-20); BUN (Urea Nitrogen) 46 mg/dL (8.4-25.7); BUN/Creatinine Ratio 15.44; Calc. Creatinine Clearance 26 mL/min (70-130); Calcium 10.4 mg/dL (7.8-10.44); Carbon Dioxide 28 mmol/L (23-31); Chloride 107 mmol/L (98-107); Potassium 3.7 mmol/L (3.5-5.1); Sodium 149 mmol/L (136-145)
[2025-08-31 08:21] LABS: Vancomycin, Random 18.2 ug/mL (See Comment)
[2025-08-31 08:24] LABS: Hematocrit 24.2 % (42.0-52.0); Hemoglobin 7.1 g/dL (14.0-18.0); Mean Corpuscular Hemoglobin 30.3 pg (27.0-31.0); Mean Corpuscular Volume 103.4 fL (78.0-98.0); Platelet Count 118 10x3/uL (130-400); Red Blood Cell (RBC) Count 2.34 mill/uL (4.70-6.10); White Blood Cell (WBC) Count 29.66 10x3/uL (4.8-10.8)
[2025-08-31 08:30] LABS: Glucose 184 mg/dL (83-110)
[2025-08-31 10:06] LABS: Anisocytosis MARKED = >30 cells HPF (0-5); Macrocytosis MODERATE=16-30 cells HPF (0-5); Nucleated RBC (Manual Ct) 1 % (0); Ovalocytes SLIGHT = 2-5 cells HPF (0-1); Platelet Adequacy Comment Platelets Decreased; Polychromasia SLIGHT = 2-3 cells HPF (0-2)
[2025-09-01 07:34] LABS: Albumin 3.3 g/dL (3.1-4.5); Anion Gap 14 mmol/L (10-20); BUN (Urea Nitrogen) 47 mg/dL (8.4-25.7); BUN/Creatinine Ratio 17.74; Calc. Creatinine Clearance 29 mL/min (70-130); Calcium 9.9 mg/dL (7.8-10.44); Carbon Dioxide 27 mmol/L (23-31); Chloride 107 mmol/L (98-107); Glucose 222 mg/dL (83-110); Potassium 3.8 mmol/L (3.5-5.1); Sodium 144 mmol/L (136-145)
[2025-09-01 07:35] LABS: Vancomycin, Random 14.4 ug/mL (See Comment)
[2025-09-01 08:36] LABS: Anisocytosis SLIGHT = 6-15 cells HPF (0-5); Macrocytosis SLIGHT = 6-15 cells HPF (0-5); Nucleated RBC (Manual Ct) 1 % (0); Ovalocytes SLIGHT = 2-5 cells HPF (0-1); Platelet Adequacy Comment Platelets Decreased; Polychromasia SLIGHT = 2-3 cells HPF (0-2); Target Cells SLIGHT = 2-5 cells HPF (0-1)
[2025-09-01 08:42] LABS: Hematocrit 22.2 % (42.0-52.0); Hemoglobin 6.7 g/dL (14.0-18.0); Mean Corpuscular Hemoglobin 31.3 pg (27.0-31.0); Mean Corpuscular Volume 101.4 fL (78.0-98.0); Platelet Count 112 10x3/uL (130-400); Red Blood Cell (RBC) Count 2.17 mill/uL (4.70-6.10); White Blood Cell (WBC) Count 28.44 10x3/uL (4.8-10.8)
[2025-09-02 06:45] LABS: Hematocrit 25.4 % (42.0-52.0); Hemoglobin 7.9 g/dL (14.0-18.0); Mean Corpuscular Hemoglobin 31.1 pg (27.0-31.0); Mean Corpuscular Volume 100.0 fL (78.0-98.0); Platelet Count 116 10x3/uL (130-400); Red Blood Cell (RBC) Count 2.54 mill/uL (4.70-6.10); White Blood Cell (WBC) Count 34.17 10x3/uL (4.8-10.8)
[2025-09-02 06:51] LABS: Albumin 3.3 g/dL (3.1-4.5); Anion Gap 20 mmol/L (10-20); BUN (Urea Nitrogen) 43 mg/dL (8.4-25.7); BUN/Creatinine Ratio 19.28; Calc. Creatinine Clearance 35 mL/min (70-130); Calcium 9.5 mg/dL (7.8-10.44); Carbon Dioxide 23 mmol/L (23-31); Chloride 108 mmol/L (98-107); Glucose 299 mg/dL (83-110); Potassium 3.7 mmol/L (3.5-5.1); Sodium 147 mmol/L (136-145)
[2025-09-02 07:33] LABS: Anisocytosis MODERATE=16-30 cells HPF (0-5); Macrocytosis SLIGHT = 6-15 cells HPF (0-5); Ovalocytes SLIGHT = 2-5 cells HPF (0-1); Platelet Adequacy Comment Platelets Decreased; Poikilocytosis SLIGHT = 6-15 cells HPF (0-5); Polychromasia SLIGHT = 2-3 cells HPF (0-2); Smudge Cells 34.6 %
[2025-09-02 09:39] LABS: Vancomycin, Trough 13.6 ug/mL
[2025-09-02 14:13] LABS: Fungitell Beta (1,3) D-Glucan See below: (.)
[2025-09-02] MEDS: QUEtiapine 25 MG TAB PO SCH (18:19)
[2025-09-03 08:28] LABS: Albumin 3.3 g/dL (3.1-4.5); Anion Gap 13 mmol/L (10-20); BUN (Urea Nitrogen) 41 mg/dL (8.4-25.7); BUN/Creatinine Ratio 20.71; Calc. Creatinine Clearance 39 mL/min (70-130); Calcium 9.3 mg/dL (7.8-10.44); Carbon Dioxide 26 mmol/L (23-31); Chloride 111 mmol/L (98-107); Glucose 210 mg/dL (83-110); Potassium 3.6 mmol/L (3.5-5.1); Sodium 146 mmol/L (136-145)
[2025-09-03 08:37] VITALS: BP 156/77; TEMP 97.7
[2025-09-03 13:15] LABS: Vancomycin, Trough 14.6 ug/mL
[2025-09-03] MEDS: Fluconazole In NaCl,Iso-Osm 100 MG in Admixture Fee 1 EACH IVPB SCH (14:51)
== END 2025-09-03 17:02 | disposition hospice, inpatient (51) | DRG 871 ==
LOC: ERS 09:14 → 2NO 14:37 → T4-A 08-26 15:57
PROVIDERS: ADMIT Family Medicine; ATTEND Internal Medicine
PROC: 3E03329 Introduction of Other Anti-infective into Peripheral Vein, Percutaneous Approach (ICD-10-PCS; principal; 2025-08-21)
PROC: 30233J1 Transfusion of Nonautologous Serum Albumin into Peripheral Vein, Percutaneous Approach (ICD-10-PCS; 2025-08-21)
PROC: 4A133R1 Monitoring of Arterial Saturation, Peripheral, Percutaneous Approach (ICD-10-PCS; 2025-08-21)
PROC: 0T9B70Z Drainage of Bladder with Drainage Device, Via Natural or Artificial Opening (ICD-10-PCS; 2025-08-21)
PROC: 30233N1 Transfusion of Nonautologous Red Blood Cells into Peripheral Vein, Percutaneous Approach (ICD-10-PCS; 2025-09-01)
DX: A41.9 Sepsis, unspecified organism (principal); G93.41 Metabolic encephalopathy; J96.01 Acute respiratory failure with hypoxia; J18.9 Pneumonia, unspecified organism; I13.0 Hypertensive heart and chronic kidney disease with heart failure and stage 1 through stage 4 chronic kidney disease, or unspecified chronic kidney disease; N17.9 Acute kidney failure, unspecified; N39.0 Urinary tract infection, site not specified; I50.32 Chronic diastolic (congestive) heart failure; E87.0 Hyperosmolality and hypernatremia; E87.21 Acute metabolic acidosis; I48.20 Chronic atrial fibrillation, unspecified; R65.20 Severe sepsis without septic shock; E78.5 Hyperlipidemia, unspecified; E03.9 Hypothyroidism, unspecified; D63.1 Anemia in chronic kidney disease; F03.90 Unspecified dementia, unspecified severity, without behavioral disturbance, psychotic disturbance, mood disturbance, and anxiety; I95.9 Hypotension, unspecified; Z66 Do not resuscitate; E11.22 Type 2 diabetes mellitus with diabetic chronic kidney disease; Z91.040 Latex allergy status; Z79.899 Other long term (current) drug therapy; Z88.8 Allergy status to other drugs, medicaments and biological substances; Z98.890 Other specified postprocedural states; Z88.5 Allergy status to narcotic agent; Z79.01 Long term (current) use of anticoagulants; Z79.890 Hormone replacement therapy; Z95.0 Presence of cardiac pacemaker; N18.30 Chronic kidney disease, stage 3 unspecified; R41.0 Disorientation, unspecified; Z79.82 Long term (current) use of aspirin; E11.40 Type 2 diabetes mellitus with diabetic neuropathy, unspecified; Z98.84 Bariatric surgery status; F43.10 Post-traumatic stress disorder, unspecified
CPT/HCPCS: 36415; 36416; 36430; 51702; 70450; 70551; 71045; 71250; 74176; 74177; 76014; 76770; 80048; 80053; 80069; 80202; 81001; 82040; 82550; 82570; 82805; 83605; 83735; 83880; 84145; 84300; 84484; 85025; 85060; 86141; 86780; 86850; 86900; 86901; 87040; 87086; 87177; 87209; 87449; 87497; 87899; 88184; 93005; 93010; 93306; 94640; 96365; 96375; A4217; J0692; J0696; J1200; J1450; J1630; J1815; J1940; J2060; J2543; J2916; J3373; J3375; J7050; J7120; P9016; P9047; Q5105; Q9963

== ENCOUNTER 2025-09-03 17:36 | Inpatient (IN) | payer OTHER ==
[2025-09-03] MEDS ORDERED: Ondansetron PF 4 MG/2 ML Vial IVP PRN (18:00)
[2025-09-03] MEDS ORDERED: Scopolamine 1 mg/72 hour Patch TOP PRN (18:00)
[2025-09-03] MEDS ORDERED: Bisacodyl 10 MG SUPP PR PRN (18:05)
[2025-09-03] MEDS: Scopolamine 1 mg/72 hour Patch TOP PRN (18:10)
[2025-09-03] MEDS: Glycopyrrolate 0.4 MG/ 2 ML VIAL SLOW IVP PRN (18:34)
[2025-09-03] MEDS: QUEtiapine 25 MG TAB PO SCH (19:31)
[2025-09-05 20:06] VITALS: TEMP 99
[2025-09-06 02:34] VITALS: BP 92/56
== END 2025-09-06 07:23 | disposition expired | DRG 951 ==
LOC: T4-A 17:36
PROVIDERS: ADMIT Family Medicine; ATTEND Family Medicine
DX: Z51.5 Encounter for palliative care (principal); A41.9 Sepsis, unspecified organism; I50.32 Chronic diastolic (congestive) heart failure; N39.0 Urinary tract infection, site not specified; R63.0 Anorexia; Z87.01 Personal history of pneumonia (recurrent); I48.91 Unspecified atrial fibrillation; E11.9 Type 2 diabetes mellitus without complications; I11.0 Hypertensive heart disease with heart failure; D64.9 Anemia, unspecified; Z91.040 Latex allergy status; Z88.8 Allergy status to other drugs, medicaments and biological substances
CPT/HCPCS: J2060; J2270